=== PATIENT | female | born 1980 | race Caucasian/White ===

== ENCOUNTER 2016-10-13 15:15 | Emergency (ER) ==
[2016-10-13 15:22] VITALS: BP 119/85; TEMP 97.6; BMI 32.1
[2016-10-13] MEDS ORDERED: SODIUM CHLORIDE 1,000 ML IV STA (15:38)
[2016-10-13] MEDS ORDERED: PHENERGAN 25 MG/ML VIAL 12.5 MG in SODIUM CHLORIDE 50 ML IV STA (15:39)
[2016-10-13] MEDS ORDERED: PHENERGAN 25 MG/ML VIAL ONE (15:46)
[2016-10-13 15:49] LABS: BASOPHILS % (AUTO) 0.2 % (0.0-3.0); EOSINOPHILS # (AUTO) 0.4 K/ul (0.0-0.7); EOSINOPHILS % (AUTO) 3.3 % (0.0-7.0); HEMATOCRIT 45.8 % (37.0-47.0); HEMOGLOBIN 15.4 g/dl (12.0-16.0); IMMATURE GRANULOCYTE % (AUTO) 0.5 % (0.0-5.0); LYMPHOCYTES # (AUTO) 3.5 K/uL (0.60-3.4); LYMPHOCYTES % (AUTO) 28.4 (10.0-50.0); MEAN CORPUSCULAR HEMOGLOBIN 30.7 pg (27.0-31.0); MEAN CORPUSCULAR HGB CONC 33.6 (31.8-35.4); MEAN CORPUSCULAR VOLUME 91.4 fl (81.0-99.0); MONOCYTES # (AUTO) 0.7 K/uL (0.4-2.0); NEUTROPHILS # (AUTO) 7.7 K/ul (2.0-6.9); NEUTROPHILS % (AUTO) 61.6; PLATELET COUNT 276 10^3/uL (140-440); RED BLOOD COUNT 5.01 10^6/ul (4.20-5.40); WHITE BLOOD COUNT 12.43 K/ul (4.6-10.2)
--- NOTE | 2016-10-13 16:03 | ED.PDOC ---
General ED Provider: Dr. SURENDRA ALCOCER Chief Complaint: Abdominal Pain Stated Complaint: Diarrhea; cramping - abdominal pain Time Seen by Physician: 15:25 Mode of Arrival: Walk-In Information Source: Patient Exam Limitations: No limitations [facility] Nursing and Triage Documentation Reviewed and Agree: Yes Review of Systems - Review Of Systems Constitutional: Reports: Malaise GI: Reports: Abdominal pain (generalized), Diarrhea, Nausea. Denies: Vomiting All Other Systems: Reviewed and Negative Past Medical History - Past Medical History Previously Healthy: Yes Endocrine: Reports: None Cardiovascular: Reports: None Respiratory: Reports: None Hematological: Reports: None Gastrointestinal: Reports: GERD Genitourinary: Reports: None Neuro/Psych: Reports: Migraine, Anxiety Musculoskeletal: Reports: Joint Pain Cancer: Reports: None Last Menstrual Period: N/A Other Pertinent Past Medical History: PAIN MANAGEMENT; - Surgical History General Surgical History: Reports: Hysterectomy (partial hyst;ablation), Tubal ligation, Cholecystectomy, Other (ESOPHAGUS) - Family History Family History: Reports: Unknown - Social History Smoking Status: Current every day smoker, Light tobacco smoker Hx Substance Use: No Alcohol Screening: Occasionally Physical Exam - Physical Exam Appearance: Ill-appearing Ill-appearing: Mild Eyes: EDGARDO, EOMI, Conjunctiva clear ENT: Oropharynx normal Neck: Supple Respiratory: Airway patent, Breath sounds clear, Breath sounds equal, Respirations nonlabored Cardiovascular: RRR, Pulses normal GI/: Soft, Nontender, No masses, Bowel sounds hypoactive Musculoskeletal: Normal strength, ROM intact Skin: Warm, Dry, Normal color Neurological: Sensation intact, Motor intact, Alert, Oriented Psychiatric: Affect appropriate, Mood appropriate Interpretation - Radiology Interpretation Radiology Interpretation By: Radiologist Exam Interpreted: CT Scan (Abd Pelvis; no acute process) Critical Care Note - Critical Care Note Total Time (mins): 35 Course - Course Hematology/Chemistry: 10/13/16 15:35 10/13/16 15:35 Orders, Labs, Meds: Lab Review 10/13/16 10/13/16 15:35 16:13 WBC 12.43 H RBC 5.01 Hgb 15.4 Hct 45.8 MCV 91.4 MCH 30.7 MCHC 33.6 RDW Coeff of Prerna 13.3 Plt Count 276 Immature Gran % (Auto) 0.5 Neut % (Auto) 61.6 Lymph % (Auto) 28.4 [place] % (Auto) 6.0 Eos % (Auto) 3.3 Baso % (Auto) 0.2 Immature Gran # (Auto) 0.1 Neut # 7.7 H Lymph # 3.5 H Wake # 0.7 Eos # 0.4 Baso # 0.0 Sodium 139 Potassium 3.5 Chloride 107 Carbon Dioxide 22 Anion Gap 13.5 BUN 8 Creatinine 0.88 Estimated GFR (MDRD) 72.00 BUN/Creatinine Ratio 9.09 Glucose 87 Calcium 9.1 Total Bilirubin 0.41 AST 16 ALT 24 Alkaline Phosphatase 81 Total Protein 7.4 Albumin 3.9 Globulin 3.5 Albumin/Globulin Ratio 1.11 Lipase 19 Urine Color Yellow Urine Clarity Slightly Urine pH 5.5 Ur Specific [place] >=1.030 Urine Protein Trace Urine Glucose (UA) Negative Urine Ketones Negative Urine Blood Negative Urine Nitrite Negative Urine Bilirubin Negative Urine Urobilinogen 0.2 Ur Leukocyte Esterase Negative Ur Squamous Epith Cells 30-50 Amorphous Sediment 1+ Orders Category Date Time Status CBC W/ AUTO DIFF Stat LAB 10/13/16 15:35 Completed COMPREHENSIVE METABOLIC PANEL Stat LAB 10/13/16 15:35 Completed LIPASE Stat LAB 10/13/16 15:35 Completed URINALYSIS C & S IF INDICATED Stat LAB 10/13/16 16:13 Completed Promethazine HCl [Phenergan 25 mg/ml Vial] MEDS 10/13/16 15:46 Discontinued 25 mg .ROUTE .STK-MED ONE Promethazine HCl [Phenergan 25 mg/ml Vial] 12.5 mg MEDS 10/13/16 15:39 Discontinued 0.9 % Sodium Chloride [Sodium Chloride] 50 ml IV ONCE Sodium Chloride 0.9% [Sodium Chloride] 1,000 ml MEDS 10/13/16 15:[address] ABDOMEN/PELVIS WO CONTRAST Stat RADS 10/13/16 15:45 Completed Medications Discontinued Medications Generic Name Dose Route Start Last Admin Trade Name Freq PRN Reason Stop Dose Admin Sodium Chloride 1,000 mls @ 1,000 mls/hr 10/13/16 15:38 10/13/16 16:14 Sodium Chloride IV 10/13/16 16:37 1,000 mls/hr BOLUS STA Administration Promethazine HCl 12.5 mg/ 50.5 mls @ 75 mls/hr 10/13/16 15:39 10/13/16 16:12 Sodium Chloride IV 10/13/16 16:19 75 mls/hr ONCE STA Administration Vital Signs: Temp Pulse Resp BP Pulse Ox 10/13/16 15:15 97.6 F 98 H 20 119/85 98 Departure - Departure Time of Disposition: 17:03 Disposition: HOME SELF-CARE Discharge Problem: Enteritis Instructions: Enteritis (ED) Condition: Good Pt referred to PMD for follow-up: Yes (Call for appointment) Additional Instructions: Use phenergan as needed for nausea. Keep well hydrated - small amounts of clear liquids frequently next 18 hours. Allergies/Adverse Reactions: Allergies No Known Allergies Allergy (Verified 10/13/16 15:23) Home Medications: Ambulatory Orders Hydrocodone/Acetaminophen [Lortab 7.5-500 Tablet] 1 each PO TID PRN 08/02/13 Topiramate [Topamax] 100 mg PO BID 12/15/15 Cyclobenzaprine HCl [Flexeril] 10 mg PO TID 10/13/16 Disposition Discussed With: Patient
[2016-10-13 16:08] LABS: ALBUMIN 3.9 g/dL (3.4-5.0); ALBUMIN/GLOBULIN RATIO 1.11; ANION GAP 13.5; BILIRUBIN,TOTAL 0.41 mg/dL (0.00-1.20); BUN/CREATININE RATIO 9.09; CALCIUM 9.1 mg/dL (8.2-10.2); CREATININE 0.88 mg/dL (0.60-1.30); POTASSIUM 3.5 mmol/L (3.5-5.10); TOTAL PROTEIN 7.4 g/dL (6.4-8.2)
[2016-10-13 16:20] LABS: BILIRUBIN,URINE Negative (NEGATIVE); KETONES,URINE Negative (NEGATIVE); LEUKOCYTE ESTERASE ,URINE Negative (NEGATIVE); NITRITE,URINE Negative (NEGATIVE); PH,URINE 5.5 (5-9); PROTEIN,URINE Trace (NEGATIVE); URINE, BLOOD Negative (NEGATIVE)
[2016-10-13 16:23] LABS: ADD URINE MICROSCOPIC YES
--- NOTE | 2016-10-13 16:51 | CT ---
EXAM: CT of the abdomen and pelvis without contrast: History: Patient with history of abdominal pain, nausea. COMPARISON: None available at the time of dictation Technique: Non contrast CT of the abdomen and pelvis was performed with axial , sagital and coronal reconstuctions were obtained and reviewed. FINDINGS: The appendix is visualized without definitive evidence of inflammation or dilation identified. No stones are identified in the bilateral kidneys, ureters or bladder. There is no hydronephrosis or hydroureter idenified. Within the limits of this noncontrast study, no lesions are identified in the kidneys, adrenals, floyd er, spleen or pancreas. Cholecystectomy clips are present. No dilated bowel loops are identified. No focal fluid collections or pathologically enlarged lym ph nodes are identified in the abdomen or pelvis. Bone windows demonstrate no destructive osseous lesions are identified in the abdomen or pelvis. Lum bar spine degenerative changes are present. Limited evaluation of the lung bases appear clear. IMPRESSION: 1. No kidney stones or renal collecting system stones are identified. 2. The appendix is visualized without definitive evidence of inflammation or dilation. 3. Cholecystectomy . 4. Technical limitations in the absence of contrast.
== END 2016-10-13 17:15 | disposition home or self-care (01) ==
LOC: ED 15:15
DX: K52.9 Noninfective gastroenteritis and colitis, unspecified (principal); F17.210 Nicotine dependence, cigarettes, uncomplicated
CPT/HCPCS: 36415; 80053; 81001; 83690; 85025; 96361; 96365; 99283

== ENCOUNTER 2017-01-09 20:39 | Emergency (ER) ==
[2017-01-09 20:53] VITALS: BP 114/80; TEMP 98.2; BMI 31.9
--- NOTE | 2017-01-09 21:10 | ED.PDOC ---
General ED Provider: Dr. EMANI SALGADO Chief Complaint: Nausea/Vomiting Stated Complaint: been hurting in the lower part of the abdomen, cramps, nausea , not vomited, Time Seen by Physician: 21:08 Mode of Arrival: Walk-In Information Source: Patient Primary Care Provider: EMANI SALGADO-[facility] Nursing and Triage Documentation Reviewed and Agree: Yes GI Complaint Exam - Abdominal Pain Complaint/Exam Onset: Gradual Symptoms Are: Still present Timing: Constant Initial Severity: Moderate Current Severity: Moderate Location of Pain: Suprapubic Character: Reports: Aching, Throbbing Aggravating: Reports: None Alleviating: Reports: None Associated Signs and Symptoms: Reports: Nausea, Diarrhea. Denies: Diaphoresis, Fever, Cough, Chest pain, Dizziness, Back pain, Constipation, Blood in stool, Dysuria, Urinary frequency, Decreased urine output, Decreased appetite, Vaginal bleeding, Vaginal discharge, Vomiting, Sore throat, Decreased activity Related History: Reports: Similar episode AAA Risk Factors: Reports: None Cardiac Risk Factors: Reports: None Ectopic Risk Factors: Reports: None Ovarian Torsion Risk Factors: Reports: None Surgical Obstruction Risk Factors: Reports: None Related Surgical History: Reports: None Abdominal Findings: Absent: Pulsatile mass, Abdominal distention Vulva Exam: Absent: Contusion Differential Diagnoses: Constipation, UTI, Ovarian Cyst Review of Systems - Review Of Systems Constitutional: Reports: No symptoms Eyes: Reports: No symptoms Ears, Nose, Mouth, Throat: Reports: No symptoms Respiratory: Reports: No symptoms Cardiac: Reports: No symptoms GI: Reports: Abdominal pain, Nausea : Reports: No symptoms Musculoskeletal: Reports: No symptoms Skin: Reports: No symptoms Neurological: Reports: No symptoms Endocrine: Reports: No symptoms Hematologic/Lymphatic: Reports: No symptoms All Other Systems: Reviewed and Negative Past Medical History - Past Medical History Previously Healthy: Yes Endocrine: Reports: None Cardiovascular: Reports: None Respiratory: Reports: None Hematological: Reports: None Gastrointestinal: Reports: GERD Genitourinary: Reports: None Neuro/Psych: Reports: Migraine, Anxiety Musculoskeletal: Reports: Joint Pain Cancer: Reports: None Last Menstrual Period: HYSTERECTOMY Other Pertinent Past Medical History: PAIN MANAGEMENT; - Surgical History General Surgical History: Reports: Hysterectomy (partial hyst;ablation), Tubal ligation, Cholecystectomy, Other (ESOPHAGUS) - Family History Family History: Reports: Unknown - Social History Smoking Status: Current every day smoker, Light tobacco smoker Smoking Cessation Counseling Time: > 3 min - 10 min Hx Substance Use: No Alcohol Screening: Occasionally Physical Exam - Physical Exam Appearance: Well-appearing, Obese Pain Distress: Mild Eyes: EDGARDO, EOMI, Conjunctiva clear ENT: Ears normal, Nose normal, Oropharynx normal Respiratory: Airway patent, Breath sounds clear, Breath sounds equal, Respirations nonlabored Cardiovascular: RRR, Pulses normal, No rub, No murmur GI/: Soft, Tender Musculoskeletal: Normal strength, ROM intact, No edema, No calf tenderness Skin: Warm, Dry, Normal color Neurological: Sensation intact, Motor intact, Reflexes intact, Cranial nerves intact, Alert, Oriented Psychiatric: Affect appropriate, Mood appropriate Interpretation - Radiology Interpretation Radiology Interpretation By: Radiologist Radiology Results: Negative Exam Interpreted: CT Scan Critical Care Note - Critical Care Note Total Time (mins): 0 Course - Course Hematology/Chemistry: 01/09/17 21:10 01/09/17 21:10 Orders, Labs, Meds: Lab Review 01/09/17 01/09/17 21:05 21:10 WBC 10.43 H RBC 5.15 Hgb 15.7 Hct 46.9 MCV 91.1 MCH 30.5 MCHC 33.5 RDW Coeff of Prerna 13.2 Plt Count 292 Immature Gran % (Auto) 0.4 Neut % (Auto) 46.5 Lymph % (Auto) 42.3 Long % (Auto) 7.7 Eos % (Auto) 2.8 Baso % (Auto) 0.3 Immature Gran # (Auto) 0.0 Neut # 4.9 Lymph # 4.4 H Long # 0.8 Eos # 0.3 Baso # 0.0 Sodium 137 Potassium 3.7 Chloride 106 Carbon Dioxide 22 Anion Gap 12.7 BUN 16 Creatinine 0.91 Estimated GFR (MDRD) 70.00 BUN/Creatinine Ratio 17.58 Glucose 79 Calcium 9.4 Total Bilirubin 0.24 AST 27 ALT 39 Alkaline Phosphatase 80 Total Protein 7.7 Albumin 3.8 Globulin 3.9 Albumin/Globulin Ratio 0.97 Urine Color Yellow Urine Clarity Clear Urine pH 5.0 Ur Specific [place] >=1.030 Urine Protein Negative Urine Glucose (UA) Negative Urine Ketones Trace Urine Blood Negative Urine Nitrite Negative Urine Bilirubin 1+ Urine Urobilinogen 0.2 Ur Leukocyte Esterase Negative Orders Category Date Time Status CBC W/ AUTO DIFF Stat LAB 01/09/17 21:10 Completed COMPREHENSIVE METABOLIC PANEL Stat LAB 01/09/17 21:10 Completed URINALYSIS C & S IF INDICATED Stat LAB 01/09/17 21:[address] ABDOMEN/PELVIS WO CONTRAST Stat RADS 01/09/17 21:01 Completed Vital Signs: Temp Pulse Resp BP Pulse Ox 01/09/17 20:40 98.2 F 104 H 20 114/80 98 Departure - Departure Time of Disposition: 21:46 Disposition: HOME SELF-CARE Discharge Problem: Irritable bowel syndrome Qualifiers: Irritable bowel syndrome type: with diarrhea Qualifier Code: (K58.0) Irritable bowel syndrome with diarrhea Instructions: Irritable Bowel Syndrome (ED) Condition: Stable Pt referred to PMD for follow-up: Yes Additional Instructions: Increase hydration and high fibre diet. soft diet for couple days Prescriptions: Ondansetron HCl [Zofran] 4 mg PO TID #14 tablet Allergies/Adverse Reactions: Allergies No Known Allergies Allergy (Verified 01/09/17 20:46) Home Medications: Ambulatory Orders Hydrocodone/Acetaminophen [Lortab 7.5-500 Tablet] 1 each PO TID PRN 08/02/13 Topiramate [Topamax] 100 mg PO BID 12/15/15 Cyclobenzaprine HCl [Flexeril] 10 mg PO TID 10/13/16 Ondansetron HCl [Zofran] 4 mg PO TID #14 tablet 01/09/17 Disposition Discussed With: Patient
[2017-01-09 21:18] LABS: BASOPHILS % (AUTO) 0.3 % (0.0-3.0); EOSINOPHILS # (AUTO) 0.3 K/ul (0.0-0.7); EOSINOPHILS % (AUTO) 2.8 % (0.0-7.0); HEMATOCRIT 46.9 % (37.0-47.0); HEMOGLOBIN 15.7 g/dl (12.0-16.0); IMMATURE GRANULOCYTE % (AUTO) 0.4 % (0.0-5.0); LYMPHOCYTES # (AUTO) 4.4 K/uL (0.60-3.4); LYMPHOCYTES % (AUTO) 42.3 (10.0-50.0); MEAN CORPUSCULAR HEMOGLOBIN 30.5 pg (27.0-31.0); MEAN CORPUSCULAR HGB CONC 33.5 (31.8-35.4); MEAN CORPUSCULAR VOLUME 91.1 fl (81.0-99.0); MONOCYTES # (AUTO) 0.8 K/uL (0.4-2.0); MONOCYTES % (AUTO) 7.7 (0-10); NEUTROPHILS # (AUTO) 4.9 K/ul (2.0-6.9); NEUTROPHILS % (AUTO) 46.5; PLATELET COUNT 292 10^3/uL (140-440); RED BLOOD COUNT 5.15 10^6/ul (4.20-5.40); WHITE BLOOD COUNT 10.43 K/ul (4.6-10.2)
[2017-01-09 21:20] LABS: BILIRUBIN,URINE 1+ (NEGATIVE); KETONES,URINE Trace (NEGATIVE); LEUKOCYTE ESTERASE ,URINE Negative (NEGATIVE); NITRITE,URINE Negative (NEGATIVE); PROTEIN,URINE Negative (NEGATIVE); URINE, BLOOD Negative (NEGATIVE)
[2017-01-09 21:21] LABS: ADD URINE MICROSCOPIC NO
[2017-01-09 21:33] LABS: ALBUMIN 3.8 g/dL (3.4-5.0); ALBUMIN/GLOBULIN RATIO 0.97; ANION GAP 12.7; BILIRUBIN,TOTAL 0.24 mg/dL (0.00-1.20); BUN/CREATININE RATIO 17.58; CALCIUM 9.4 mg/dL (8.2-10.2); CREATININE 0.91 mg/dL (0.60-1.30); POTASSIUM 3.7 mmol/L (3.5-5.10); TOTAL PROTEIN 7.7 g/dL (6.4-8.2)
--- NOTE | 2017-01-09 21:43 | CT ---
Exam: Noncontrast CT exam of the abdomen pelvis. Comparison: 10/13/2016. Reason for exam: Lower abdominal pain. FINDINGS: No focal consolidation or pleural effusion is seen in the partially imaged lung bases. Th e heart does not appear enlarged. Image interpretation is limited by the lack of intravenous contrast administration. The gallbladder is been removed. The stomach is distended with food. Within the limitations of a non contrast exam, the liver, spleen, adrenal glands, and pancreas are grossly unremarkable. No hydronephrosis, hydroureter, or nephrolithiasis. There is no focal small bowel dilatation or transition point. No inflammatory changes are seen with in the mesenteric or pelvic fat. There is no intra-abdominal free air or pelvic free fluid. The appendix is unremarkable. No osteoblastic or osteolytic lesions. There is a new only fat containing periumbilical hernia. Multiple phleboliths are seen within the pe lvis. Impression: No acute inflammatory findings are seen within the abdomen or pelvis. Image interpretation faxed at the 2138 hours on 01/09/2017.
== END 2017-01-09 21:59 | disposition home or self-care (01) ==
LOC: ED 20:39
DX: K58.0 Irritable bowel syndrome with diarrhea (principal); F17.210 Nicotine dependence, cigarettes, uncomplicated
CPT/HCPCS: 36415; 80053; 81001; 85025; 99283

== ENCOUNTER 2017-01-16 13:43 | Outpatient (CLI) ==
--- NOTE | 2017-01-16 14:22 | DI ---
EXAM: Radiographs, lumbar spine HISTORY: Lumbar disc disease. COMPARISON: Abdominal CT 01/09/2017. MRI 08/17/2010. TECHNIQUE: Five views. FINDINGS: Curvature and alignment are normal save for minimal left convex midlumbar curvature. Brandon tebral body heights are maintained. Disc heights are normal. Mild endplate osteophyte formation an d facet arthropathy seen, greater in the lower lumbar spine. No fracture or subluxation identified. Sacral arcuate lines are intact. Cholecystectomy clips noted. Phleboliths are seen in the pelvis . IMPRESSION: Multilevel degenerative changes, greater in the lower lumbar spine. Consider follow-up MRI if furth er evaluation is needed.
== END 2017-01-16 13:44 | disposition home or self-care (01) ==
LOC: RAD 13:43
PROVIDERS: ATTEND Pain Medicine Interventional Pain Medicine
DX: M54.16 Radiculopathy, lumbar region (principal); M54.17 Radiculopathy, lumbosacral region; M47.816 Spondylosis without myelopathy or radiculopathy, lumbar region; M47.817 Spondylosis without myelopathy or radiculopathy, lumbosacral region; M51.36 Other intervertebral disc degeneration, lumbar region; M51.37 Other intervertebral disc degeneration, lumbosacral region

== ENCOUNTER 2017-02-01 11:41 | Outpatient (CLI) ==
[2017-02-01 13:10] LABS: BILIRUBIN,URINE Negative (NEGATIVE); KETONES,URINE Negative (NEGATIVE); LEUKOCYTE ESTERASE ,URINE Negative (NEGATIVE); NITRITE,URINE Negative (NEGATIVE); PH,URINE 7.5 (5-9); PROTEIN,URINE Negative (NEGATIVE); URINE, BLOOD Negative (NEGATIVE)
[2017-02-01 13:25] LABS: ADD URINE MICROSCOPIC NO
== END 2017-02-01 11:42 | disposition home or self-care (01) ==
LOC: LAB 11:41
PROVIDERS: ATTEND Nurse Practitioner Family
DX: R35.0 Frequency of micturition (principal); R30.9 Painful micturition, unspecified; Z00.00 Encounter for general adult medical examination without abnormal findings; Z72.0 Tobacco use
CPT/HCPCS: 81001

== ENCOUNTER 2017-02-08 11:51 | Outpatient (CLI) ==
[2017-02-14 09:37] LABS: IGG P18 AB Absent (.); IGG P23 AB Absent (.); IGG P28 AB Absent (.); IGG P30 AB Absent (.); IGG P39 AB Absent (.); IGG P41 AB Present (.); IGG P45 AB Absent (.); IGG P58 AB Absent (.); IGG P66 AB Absent (.); IGG P93 AB Absent (.); IGM P39 AB Absent (.); IGM P41 AB Absent (.); RHEUMATOID ARTHRITIS FACTOR < 10.0 IU/mL (0.0-13.9)
[2017-02-14 14:02] LABS: ANTI-NUCLEAR ANTIBODY SCREEN Positive (Negative); LYME IGG WB INTERP Negative (.); LYME IGM WB INTERP Negative (.)
== END 2017-02-08 11:52 ==
LOC: LAB 11:51
PROVIDERS: ATTEND Nurse Practitioner Family
DX: M25.50 Pain in unspecified joint (principal)
CPT/HCPCS: 36415; 82306; 86038; 86430; 86617; 86664

== ENCOUNTER 2017-02-12 14:14 | Outpatient (CLI) | END 2017-02-12 14:15 | disposition home or self-care (01) | LOC: CAR 14:14 | PROVIDERS: ATTEND Nurse Practitioner Family | DX: R40.0 Somnolence (principal) ==

== ENCOUNTER 2017-02-13 08:27 | Outpatient (CLI) ==
--- NOTE | 2017-02-13 22:56 | MRI ---
EXAM: Lumbar spine MRI without contrast. HISTORY: Lumbar disc disease. COMPARISON: Lumbar spine radiographs 01/16/2017. TECHNIQUE: Multiplanar, multisequence MR images were acquired of the lumbar spine without contrast. FINDINGS: Five lumbar-type vertebra are present. There is mild accentuation of the usual lumbar lo rdosis and there is 1.5 mm degenerative anterolisthesis of L5 on S1. The lumbar vertebra are normal in height and intrinsic bone marrow signal. Benign intraosseous hemangiomas are present at T11, T1 2, L1 and L3. There is disc desiccation and mild disc space narrowing at L3-4 and L5-S1. Developin g disc dessication is present at L4-5. Conus medullaris ends at T12-L1 and has normal signal intens ity. The partially visualized liver, spleen, adrenal glands and kidneys are unremarkable. There are no p aravertebral masses. T12-L1, L1-2, L2-3: The intervertebral discs are normal. There is no central canal stenosis or for aminal stenosis. L3-4: There is a minor disc bulge and a small central disc protrusion that minimally effaces the ve ntral thecal sac. Mild left facet hypertrophy is present. There is no central canal stenosis or fo raminal stenosis. L4-5: There is a minor posterior disc bulge and a probable small central disc protrusion and annula r fissure. Volume averaging artifact is considered less likely. Moderate left and mild to moderate right hypertrophic facet arthropathy is present without foraminal stenosis. L5-S1: There is a tiny right paracentral disc protrusion and annular fissure that minimally effaces the ventral thecal sac and mild to moderate bilateral hypertrophic facet arthropathy without forami nal stenosis. IMPRESSION: 1. Small central disc protrusion L3-4, tiny right paracentral disc protrusion and annular fissure L 5-S1 and probable small central disc protrusion L4-5. 2. Mild to moderate and moderate hypertrophic facet arthropathy L4-5 and L5-S1. 3. No central canal stenosis, pars interarticularis defects or significant foraminal stenosis.
== END 2017-02-13 08:28 | disposition home or self-care (01) ==
LOC: RAD 08:27
PROVIDERS: ATTEND Nurse Practitioner Family
DX: R93.7 Abnormal findings on diagnostic imaging of other parts of musculoskeletal system (principal); M12.88 Other specific arthropathies, not elsewhere classified, other specified site; M54.5 Low back pain

== ENCOUNTER 2017-02-15 11:50 | Outpatient (CLI) | END 2017-02-15 11:51 | disposition home or self-care (01) | LOC: LAB 11:50 | PROVIDERS: ATTEND Nurse Practitioner Family | DX: R53.83 Other fatigue (principal); E66.9 Obesity, unspecified | CPT/HCPCS: 36415; 84439; 84443 ==

== ENCOUNTER 2017-06-24 12:50 | Outpatient (CLI) ==
[2017-06-24 13:09] LABS: BASOPHILS # (AUTO) 0.1 K/uL (0-0.2); BASOPHILS % (AUTO) 0.4 % (0.0-3.0); EOSINOPHILS # (AUTO) 0.2 K/ul (0.0-0.7); EOSINOPHILS % (AUTO) 1.2 % (0.0-7.0); HEMATOCRIT 44.9 % (37.0-47.0); HEMOGLOBIN 15.5 g/dl (12.0-16.0); IMMATURE GRANULOCYTE % (AUTO) 0.6 % (0.0-5.0); LYMPHOCYTES # (AUTO) 4.3 K/uL (0.60-3.4); LYMPHOCYTES % (AUTO) 31.5 (10.0-50.0); MEAN CORPUSCULAR HEMOGLOBIN 30.5 pg (27.0-31.0); MEAN CORPUSCULAR HGB CONC 34.5 (31.8-35.4); MEAN CORPUSCULAR VOLUME 88.2 fl (81.0-99.0); MONOCYTES # (AUTO) 0.6 K/uL (0.4-2.0); MONOCYTES % (AUTO) 4.4 (0-10); NEUTROPHILS # (AUTO) 8.4 K/ul (2.0-6.9); NEUTROPHILS % (AUTO) 61.9; PLATELET COUNT 316 10^3/uL (140-440); RED BLOOD COUNT 5.09 10^6/ul (4.20-5.40); WHITE BLOOD COUNT 13.54 K/ul (4.6-10.2)
[2017-06-24 13:42] LABS: ALBUMIN 3.5 g/dL (3.4-5.0); ALBUMIN/GLOBULIN RATIO 0.95; ANION GAP 12.7; BILIRUBIN,TOTAL 0.56 mg/dL (0.00-1.20); BUN/CREATININE RATIO 18.3; CALCIUM 9.2 mg/dL (8.2-10.2); CHOL/HDL RATIO 4.1 (4.5-5.5); CREATININE 0.71 mg/dL (0.60-1.30); POTASSIUM 3.7 mmol/L (3.5-5.10); TOTAL PROTEIN 7.2 g/dL (6.4-8.2)
== END 2017-06-24 12:51 | disposition home or self-care (01) ==
LOC: LAB 12:50
PROVIDERS: ATTEND Nurse Practitioner Family
DX: Z00.00 Encounter for general adult medical examination without abnormal findings (principal); Z72.0 Tobacco use
CPT/HCPCS: 36415; 80053; 80061; 84443; 85025

== ENCOUNTER 2017-08-11 13:29 | Emergency (ER) ==
[2017-08-11 13:40] VITALS: BP 127/85; TEMP 97.7; BMI 33.8
[2017-08-11] MEDS ORDERED: DUONEB NEB STA (14:12)
[2017-08-11] MEDS ORDERED: DECADRON 4 MG/ML SDV IM STA (14:12)
--- NOTE | 2017-08-11 14:15 | ED.PDOC ---
General ED Provider: Dr. EMANI SALGADO Chief Complaint: Respiratory Complaint Stated Complaint: Been coughing, congestion, getting yellow sputum Time Seen by Physician: 14:13 Mode of Arrival: Walk-In Information Source: Patient Primary Care Provider: EMANI SALGADO-[facility] Nursing and Triage Documentation Reviewed and Agree: Yes Respiratory Complaint Exam - Respiratory Complaint/Exam Symptoms Are: Still present Timing: Constant Initial Severity: Mild Current Severity: Mild Character: Reports: Productive cough Aggravating: Reports: Allergens, URI Alleviating: Reports: None Associated Signs and Symptoms: Reports: Wheezing, URI, Nasal congestion, Hoarseness. Denies: Rapid breathing, Dyspnea, Fever, Chills, Chest pain, Pleuritic chest pain, Hemoptysis, Dizziness, Calf pain, Calf swelling, Edema, Sinus discomfort, Vomiting, Sore throat, Weight loss, Decreased oral intake, Increased thirst, Increased appetite, Increased urination Related History: Reports: Similar episode History of Healthcare-Acquired Pneumonia: No Related Surgical History: Reports: None Pulmonary Embolism Risk Factors: None Cardiac Risk Factors: Reports: None Pseudomonas Risk Factors: Reports: None Tuberculosis Risk Factors: Reports: None Status Asthmaticus Risk Factors: Reports: None Home Oxygen Use: No Recent Stress Test: No Recent Echo/LV Function: No Current Antibiotic Use: No Current Asthma Medication Use: No Respiratory Distress: None Inadequate Respiratory Effort: No Dysphagia Present: No Stridor Present: No JVD Present: No Accessory Muscle Use: No Retractions: Not Present Diminished Breath Sounds: No Prolonged Respiration: Inspiratory phase Sinus Tenderness: None Grunting Respirations: No Kussmaul Respirations: No Differential Diagnoses: Pneumonia, Bronchitis Review of Systems - Review Of Systems Constitutional: Reports: No symptoms Eyes: Reports: No symptoms Ears, Nose, Mouth, Throat: Reports: Nose discharge, Throat pain Respiratory: Reports: Cough Cardiac: Reports: No symptoms GI: Reports: No symptoms : Reports: No symptoms Musculoskeletal: Reports: No symptoms Skin: Reports: No symptoms Neurological: Reports: No symptoms Endocrine: Reports: No symptoms Hematologic/Lymphatic: Reports: No symptoms All Other Systems: Reviewed and Negative Past Medical History - Past Medical History Previously Healthy: Yes Endocrine: Reports: None Cardiovascular: Reports: None Respiratory: Reports: None Hematological: Reports: None Gastrointestinal: Reports: GERD Genitourinary: Reports: None Neuro/Psych: Reports: Migraine, Anxiety Musculoskeletal: Reports: Joint Pain Cancer: Reports: None Last Menstrual Period: unknown, hysterectomy Other Pertinent Past Medical History: PAIN MANAGEMENT; - Surgical History General Surgical History: Reports: Hysterectomy (partial hyst;ablation), Tubal ligation, Cholecystectomy, Other (ESOPHAGUS) - Family History Family History: Reports: Unknown - Social History Smoking Status: Current every day smoker, Light tobacco smoker Smoking Cessation Counseling Time: > 3 min - 10 min Hx Substance Use: No Alcohol Screening: Occasionally Physical Exam - Physical Exam Appearance: Ill-appearing, Obese Eyes: EDGARDO, EOMI, Conjunctiva clear ENT: Ears normal, Nose normal, Oropharynx normal Respiratory: Crackles Cardiovascular: RRR, Pulses normal, No rub, No murmur GI/: Soft, Nontender, No masses, Bowel sounds normal, No Organomegaly Musculoskeletal: Normal strength, ROM intact, No edema, No calf tenderness Skin: Warm, Dry, Normal color Neurological: Sensation intact, Motor intact, Reflexes intact, Cranial nerves intact, Alert, Oriented Psychiatric: Affect appropriate, Mood appropriate Interpretation - Radiology Interpretation Radiology Interpretation By: ED Physician Radiology Results: Negative Exam Interpreted: CXR Critical Care Note - Critical Care Note Total Time (mins): 0 Course - Course Orders, Labs, Meds: Orders Category Date Time Status NEBULIZER TREATMENT Stat CARDIO 08/11/17 14:12 Ordered Dexamethasone 4 mg/ml Inj [Decadron 4 mg/ml Sdv] MEDS 08/11/17 14:12 Discontinued 4 mg IM ONCE STA Ipratropium/Albuterol Neb [Duoneb] MEDS 08/11/17 14:12 Discontinued 1 vial NEB ONCE STA CHEST, 2 VIEWS PA & LAT Stat RADS 08/11/17 14:12 Taken Medications Discontinued Medications Generic Name Dose Route Start Last Admin Trade Name Freq PRN Reason Stop Dose Admin Albuterol/Ipratropium 1 vial 08/11/17 14:12 Duoneb NEB 08/11/17 14:13 ONCE STA Dexamethasone Sodium Phosphate 4 mg 08/11/17 14:12 Decadron 4 Mg/Ml Sdv IM 08/11/17 14:13 ONCE STA Vital Signs: Temp Pulse Resp BP Pulse Ox 08/11/17 13:30 97.7 F 99 H 20 127/85 98 Departure - Departure Time of Disposition: 14:39 Disposition: HOME SELF-CARE Discharge Problem: URTI (acute upper respiratory infection) Instructions: Upper Respiratory Infection (ED) Condition: Good Pt referred to PMD for follow-up: Yes Additional Instructions: Take medication with food Increase hydration. stop smoking. Prescriptions: Cephalexin [Keflex] 500 mg PO Q12HR #20 capsule Ipratropium [place] [Atrovent Hfa] 2 puff IH QID #1 vial Prednisone 10 mg PO BIDWM #14 tablet Allergies/Adverse Reactions: Allergies No Known Allergies Allergy (Verified 08/11/17 13:40) Home Medications: Ambulatory Orders Hydrocodone/Acetaminophen [Lortab 7.5-500 Tablet] 1 each PO TID PRN 08/02/13 Cyclobenzaprine HCl [Flexeril] 10 mg PO TID 10/13/16 Cephalexin [Keflex] 500 mg PO Q12HR #20 capsule 08/11/17 Ipratropium [place] [Atrovent Hfa] 2 puff IH QID #1 vial 08/11/17 Prednisone 10 mg PO BIDWM #14 tablet 08/11/17 Disposition Discussed With: Patient
--- NOTE | 2017-08-11 16:23 | DI ---
Exam: Two x-rays of the chest. Comparison: 05/23/2015. Reason for exam: Coughing. FINDINGS: No pneumothorax, pleural effusion, or focal consolidation. The cardiac silhouette is not enlarged. The imaged osseous structures appear grossly unremarkable without acute fracture. Impression: No acute cardiopulmonary process.
== END 2017-08-11 15:13 | disposition home or self-care (01) ==
LOC: ED 13:29
DX: J06.9 Acute upper respiratory infection, unspecified (principal); F17.210 Nicotine dependence, cigarettes, uncomplicated
CPT/HCPCS: 94640; 96372; 99283

== ENCOUNTER 2017-12-23 12:33 | Outpatient (CLI) | END 2017-12-23 12:34 | disposition home or self-care (01) | LOC: FCC-LAB 12:33 | PROVIDERS: ATTEND Nurse Practitioner Family | DX: F41.9 Anxiety disorder, unspecified (principal); R53.83 Other fatigue | CPT/HCPCS: 36415; 80053; 82306; 84439; 84443; 85025 ==

== ENCOUNTER 2017-12-24 10:29 | Outpatient (CLI) ==
--- NOTE | 2017-12-24 12:31 | US ---
Exam: Morales-scale and color Doppler ultrasonographic evaluation of the thyroid. Comparison: None available. Reason for exam: Nontoxic goiter. FINDINGS: The right thyroid lobe measures approximately 4.59 x 1.33 x 1.66 cm with a normal appearin g echotexture and normal vascular flow. The isthmus measures 0.46 cm. The left thyroid lobe measures approximately 4.24 x 1.46 x 1.84 cm with normal appearing echotexture and normal vascularity. Impression: Unremarkable ultrasonographic evaluation of the thyroid
== END 2017-12-24 10:30 | disposition home or self-care (01) ==
LOC: RAD 10:29
PROVIDERS: ATTEND Nurse Practitioner Family
DX: E04.9 Nontoxic goiter, unspecified (principal)

== ENCOUNTER 2017-12-31 18:35 | Emergency (ER) ==
[2017-12-31 18:45] VITALS: BP 121/86; TEMP 97.9; BMI 33.7
[2017-12-31] MEDS ORDERED: GI COCKTAIL PO STA (19:44)
[2017-12-31] MEDS ORDERED: DEMEROL 25 MG/ML VIAL IM STA (20:07)
[2017-12-31] MEDS ORDERED: ZOFRAN 4 MG/2 ML IM STA (20:07)
--- NOTE | 2017-12-31 20:10 | ED.PDOC ---
General ED Provider: Dr. EMANI SALGADO Chief Complaint: Headache Stated Complaint: Started with headache in the morning, Typical migrain, took medications went to work, started having epigastric pain nausea and vomited 2 x times. last one at 5 pm. Time Seen by Physician: 20:08 Mode of Arrival: Walk-In Information Source: Patient Primary Care Provider: EMANI SALGADO-[facility] Nursing and Triage Documentation Reviewed and Agree: Yes Reviewed sepsis parameters & appropriate labs ordered?: No System Inflammatory Response Syndrome: Not Applicable Sepsis Protocol: For patient's 13 years and over: Temp is 96.8 and below OR 101 and greater Pulse >90 BPM Resp >20/minute Acutely Altered Mental Status Are patient's symptoms suggestive of a new infection, such as: -Pneumonia -Skin, Soft Tissue -Endocarditis -UTI -Bone, Joint Infection -Implantable Device -Acute Abdominal Infection -Wound Infection -Meningitis -Blood Stream Catheter Infection -Unknown Neurological Complaint Exam - Headache Complaint/Exam Onset: Gradual Symptoms Are: Still present Timing: Constant Episodes Lasting: Hours Worst Headache Ever: No Initial Severity: Moderate Current Severity: Moderate Location: Right, Left, Frontal Character: Reports: Dull, Throbbing, Typical headache, Migraine Aggravating: Reports: None Alleviating: Reports: None Related History: Reports: Similar episode Related Surgical History: Reports: None SAH Risk Factors: Reports: None Meningitis Risk Factors: Reports: None SDH Risk Factors: Reports: None Temporal Arteritis Risk Factors: Reports: None Meningeal Signs Positive: No Pain on Passive Flexion-Positive Kernig's: No ROM Limited In: No Limitiations Focal Weakness: Present: None Focal Sensory Loss: Present: None Gait: Normal Nystagmus Present: No Gag Reflex Present: Yes [id number]: Normal Findings Romberg Test Positive: No Babinski Sign: Negative Right, Negative Left Differential Diagnoses: Migraine, Other (uti) Review of Systems - Review Of Systems Constitutional: Reports: No symptoms Eyes: Reports: No symptoms Ears, Nose, Mouth, Throat: Reports: No symptoms Respiratory: Reports: No symptoms Cardiac: Reports: No symptoms GI: Reports: Abdominal pain, Nausea, Vomiting : Reports: No symptoms Musculoskeletal: Reports: No symptoms Skin: Reports: No symptoms Neurological: Reports: Headache Endocrine: Reports: No symptoms Hematologic/Lymphatic: Reports: No symptoms All Other Systems: Reviewed and Negative Past Medical History - Past Medical History Previously Healthy: Yes Endocrine: Reports: None Cardiovascular: Reports: None Respiratory: Reports: None Hematological: Reports: None Gastrointestinal: Reports: GERD Genitourinary: Reports: None Neuro/Psych: Reports: Migraine, Anxiety Musculoskeletal: Reports: Joint Pain Cancer: Reports: None Last Menstrual Period: hysterectomy Other Pertinent Past Medical History: PAIN MANAGEMENT; - Surgical History General Surgical History: Reports: Hysterectomy (partial hyst;ablation), Tubal ligation, Cholecystectomy, Other (ESOPHAGUS) - Family History Family History: Reports: Unknown - Social History Smoking Status: Current every day smoker, Light tobacco smoker Smoking Cessation Counseling Time: > 3 min - 10 min Hx Substance Use: No Alcohol Screening: Occasionally Physical Exam - Physical Exam Appearance: Ill-appearing Eyes: EDGARDO, EOMI, Conjunctiva clear ENT: Ears normal, Nose normal, Oropharynx normal Respiratory: Airway patent, Breath sounds clear, Breath sounds equal, Respirations nonlabored Cardiovascular: RRR, Pulses normal, No rub, No murmur GI/: Soft, No masses, Bowel sounds normal, No Organomegaly, Tender Musculoskeletal: Normal strength, ROM intact, No edema, No calf tenderness Skin: Warm, Dry, Normal color Neurological: Sensation intact, Motor intact, Reflexes intact, Cranial nerves intact, Alert, Oriented Psychiatric: Affect appropriate, Mood appropriate Re-Evaluation - Re-Evaluation Time of Re-Evaluation: 20:39 Status: Improved Critical Care Note - Critical Care Note Total Time (mins): 30 Course - Course Hematology/Chemistry: 12/31/17 19:53 12/31/17 19:53 Orders, Labs, Meds: Lab Review 12/31/17 12/31/17 12/31/17 19:53 19:53 20:08 WBC 10.64 H RBC 4.39 Hgb 13.5 Hct 40.1 MCV 91.3 MCH 30.8 MCHC 33.7 RDW Coeff of Prerna 13.4 Plt Count 251 Immature Gran % (Auto) 0.4 Neut % (Auto) 55.5 Lymph % (Auto) 33.7 [place] % (Auto) 7.6 Eos % (Auto) 2.5 Baso % (Auto) 0.3 Immature Gran # (Auto) 0.0 Neut # (Auto) 5.9 Lymph # (Auto) 3.6 H [place] # (Auto) 0.8 Eos # (Auto) 0.3 Baso # (Auto) 0.0 Sodium 137 Potassium 3.5 Chloride 108 H Carbon Dioxide 21 Anion Gap 11.5 BUN 7 Creatinine 0.72 Estimated GFR (MDRD) 91.00 BUN/Creatinine Ratio 9.72 Glucose 102 Calcium 8.7 Total Bilirubin 0.2 AST 15 ALT 18 Alkaline Phosphatase 76 Total Protein 6.5 Albumin 3.3 L Globulin 3.2 Albumin/Globulin Ratio 1.03 Amylase 41 Lipase 20 Urine Color Yellow Urine Clarity Clear Urine pH 6.5 Ur Specific [place] 1.025 Urine Protein Negative Urine Glucose (UA) Negative Urine Ketones Negative Urine Blood Negative Urine Nitrite Negative Urine Bilirubin Negative Urine Urobilinogen 0.2 Ur Leukocyte Esterase Negative Orders Category Date Time Status AMYLASE Stat LAB 12/31/17 19:53 Completed CBC W/ AUTO DIFF Stat LAB 12/31/17 19:53 Completed COMPREHENSIVE METABOLIC PANEL Stat LAB 12/31/17 19:53 Completed LIPASE Stat LAB 12/31/17 19:53 Completed URINALYSIS C & S IF INDICATED Stat LAB 12/31/17 20:08 Completed Mag-Al Plus//Lidocaine [Gi Cocktail] MEDS 12/31/17 19:44 Discontinued 30 ml PO ONCE STA Meperidine HCl/Pf [Demerol 25 mg/ml Vial] MEDS 12/31/17 20:07 Discontinued 25 mg IM ONCE STA Ondansetron HCl/Pf [Zofran 4 mg/2 ml] MEDS 12/31/17 20:07 Discontinued 4 mg IM ONCE STA Medications Discontinued Medications Generic Name Dose Route Start Last Admin Trade Name Freq PRN Reason Stop Dose Admin Al Hydroxide/Mg Hydroxide 30 ml 12/31/17 19:44 12/31/17 20:06 Gi Cocktail PO 12/31/17 19:45 30 ml ONCE STA Administration Meperidine HCl 25 mg 12/31/17 20:07 12/31/17 20:14 Demerol 25 Mg/Ml Vial IM 12/31/17 20:08 25 mg ONCE STA Administration Ondansetron HCl 4 mg 12/31/17 20:07 12/31/17 20:14 Zofran 4 Mg/2 Ml IM 12/31/17 20:08 4 mg ONCE STA Administration Vital Signs: Temp Pulse Resp BP Pulse Ox 12/31/17 18:36 97.9 F 91 H 20 121/86 98 Departure - Departure Time of Disposition: 20:39 Disposition: HOME SELF-CARE Discharge Problem: Headache Instructions: Migraine Headache (ED) Condition: Stable Pt referred to PMD for follow-up: Yes IPMP verified?: No Additional Instructions: Increase Hydration Soft diet for 2-3 days continue home medications f/u [facility] in 2-3 days Prescriptions: Ondansetron [Zofran Odt] 4 mg PO Q8H #20 tab.rapdis Allergies/Adverse Reactions: Allergies No Known Allergies Allergy (Verified 12/31/17 18:45) Home Medications: Ambulatory Orders Hydrocodone/Acetaminophen [Lortab 7.5-500 Tablet] 1 each PO TID PRN 08/02/13 Cyclobenzaprine HCl [Flexeril] 10 mg PO TID 10/13/16 Topiramate [Trokendi Xr] 100 mg PO DAILY 12/23/17 Cetirizine HCl [Zyrtec] 10 mg PO DAILY 12/31/17 Multivit with Calcium,Iron,Min [Women's Daily Formula] 1 each PO DAILY 12/31/17 Ondansetron [Zofran Odt] 4 mg PO Q8H #20 tab.rapdis 12/31/17 Disposition Discussed With: Patient, Family
== END 2017-12-31 20:44 | disposition home or self-care (01) ==
LOC: ED 18:35
DX: G43.909 Migraine, unspecified, not intractable, without status migrainosus (principal); F17.210 Nicotine dependence, cigarettes, uncomplicated
CPT/HCPCS: 36415; 80053; 81001; 82150; 83690; 85025; 96372; 99283

== ENCOUNTER 2018-10-01 09:54 | Outpatient (CLI) | END 2018-10-01 09:55 | disposition home or self-care (01) | LOC: RHC-LAB 09:54 | PROVIDERS: ATTEND Nurse Practitioner Family | DX: R07.9 Chest pain, unspecified (principal); R20.0 Anesthesia of skin; Z72.0 Tobacco use; Z00.00 Encounter for general adult medical examination without abnormal findings; E55.9 Vitamin D deficiency, unspecified | CPT/HCPCS: 36415; 80053; 80061; 82306; 85025 ==

== ENCOUNTER 2018-11-07 14:21 | Outpatient (CLI) | END 2018-11-07 14:22 | disposition home or self-care (01) | LOC: RHC-LAB 14:21 | PROVIDERS: ATTEND Nurse Practitioner Family | DX: R05 Cough (principal); J02.9 Acute pharyngitis, unspecified | CPT/HCPCS: 87502; 87651 ==

== ENCOUNTER 2018-12-25 08:49 | Outpatient (CLI) ==
--- NOTE | 2018-12-25 09:13 | DI ---
EXAM: Three views of the right shoulder. History: Right shoulder pain. Findings: No acute fracture or dislocation. No abnormal calcifications or radiopaque foreign bodies . Joint spaces are preserved. Impression: Unremarkable exam
--- NOTE | 2018-12-25 10:54 | MRI ---
EXAM: MRI right shoulder without contrast. HISTORY: Osteoarthritis. Posterior shoulder pain up to neck. Painful abduction of right arm. No r ight shoulder surgery reported. TECHNIQUE: Using a local coil on a high field strength magnet multiplanar multisequence MRI was perf ormed of the right shoulder without intravenous or intra-articular gadolinium contrast. COMPARISON: MRI right shoulder 12/08/2013. Three-view plain film examination right shoulder 019. FINDINGS: A Type I acromion. Coracoacromial ligament/arch intact without definitive thickening. Mi nimal right acromioclavicular joint arthrosis with some capsular/ligamentous hypertrophy. Deltoid mu sculature shows some fatty infiltration. Tiny 7 mm fluid signal intensity cyst lying just beneath th e proximal anterior deltoid bundle. Otherwise no significant free fluid subacromial/subdeltoid bursa . Muscle bulk of the rotator cuff shows no acute muscle strain or overt atrophy.. Supraspinatus tendin osis. This extends over the supraspinatus/infraspinatus insertional interval with some fraying. Oth erwise no partial or full-thickness rotator cuff tear identified. Posterior inferior intact teres mi nor tendon fibers. Anterior intact subscapularis tendon fibers. The long head of the biceps tendon shows intact fibers located in expected position within the bicipital groove and within normal limit in signal intensity and morphology. The right humeral head is of normal morphology and seated. No right glenohumeral joint centered subc hondral bone marrow edema or bone erosions. Physiologic amount of fluid right glenohumeral joint. R ight glenoid labrum grossly intact on this non-arthrographic examination.. IMPRESSION: Minimal right acromioclavicular joint arthrosis. Tiny 7 mm fluid signal intensity cysts lying just beneath the proximal anterior deltoid bundle. Mild supraspinatus/infraspinatus tendinosis. Some bursal sided fraying. No partial or full-thicknes s rotator cuff tear identified.
== END 2018-12-25 08:50 | disposition home or self-care (01) ==
LOC: RAD 08:49
PROVIDERS: ATTEND Pain Medicine Interventional Pain Medicine
DX: M19.011 Primary osteoarthritis, right shoulder (principal)

== ENCOUNTER 2025-06-10 17:37 | Inpatient (IN) ==
--- NOTE | 2025-06-10 17:45 | ED.PDOC ---
General [facility] ED Provider: Dr. JOHAN UGARTE MD Chief Complaint: Cellulitis Stated Complaint: Patient is a 45-year-old female that reported to the emergency department for cellulitis of the abdomen. Patient stated that she noticed approximately 4 days ago a boil on her panniculus. 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 Patient stated that she has been on Bactrim for 1 day. Patient stated that today she went to her primary care provider's office because there was redness spreading further around the boil. Patient stated that her primary care provider sent to the ER for further evaluation. Patient stated that there has not been any drainage from the area. Patient stated that she has not treated the area with topical antibiotic ointment either. Patient stated that the area was tender to palpation. Patient stated that she is on pain management and takes [place] 7.5 mg and her medication has not touched her pain. Patient denied any fever, lymphadenopathy, or any other acute symptoms at the current time. Patient's vital signs are currently stable. Patient's GCS is 15. Time Seen by Provider: 06/10/25 17:39 Mode of Arrival: Walk-In Information Source: Patient Exam Limitations: No limitations Primary Care Provider: ANTHONY HUFF APRN,[facility] Nursing and Triage Documentation Reviewed and Agree: Yes Opioid Naive vs. Tolerant What is Opioid Naive?: *Opioid Naive implies the patient is not already taking opioids or not chronically receiving opioids on a daily basis. *PRN dosing is not "usually" associated with tolerance. *Patients are at higher risk of over-sedation and aspiration. What is Opioid Tolerant?: *Opioid Tolerance implies less than the expected response to an opioid. *Acquired tolerance is defined by the patient taking 60mg of oral morphine daily (or equianalgesic dose of another opioid) for 1 week or more. *Often associated with chronic pain. *May take more than usual dose to achieve desired pain control. Review of Systems Review Of Systems Constitutional: Reports No symptoms Skin: Reports Other (Cellulitis of abdomen) All Other Systems: Reviewed and Negative [facility] Medical History Depression F32.9 - Major depressive disorder, single episode, unspecified (ICD-10) Anxiety F41.9 - Anxiety disorder, unspecified (ICD-10) Family History Paternal grandmother No problems noted. Other RA (rheumatoid arthritis) Social History Smoking and tobacco status: Current every day smoker Surgical History gall bladder History of gynecological procedure ablation Z98.890 - Other specified postprocedural states (ICD-10) History of gastrointestinal surgery Dilation of esophagus Z98.890 - Other specified postprocedural states (ICD-10) History of tubal ligation Z98.51 - Tubal ligation status (ICD-10) Status post hysterectomy partial Z90.710 - Acquired absence of both cervix and uterus (ICD-10) Esophagus widened Status post cholecystectomy Z90.49 - Acquired absence of other specified parts of digestive tract (ICD- 10) Female Reproductive History Menstrual Hx Hysterectomy: Yes Hx Tubal Ligation: Yes Physical Exam Physical Exam Appearance: Reports Well-appearing and Obese Ill-appearing: None Pain Distress: None ENT: Reports Not Examined Neck: Supple Respiratory: Reports Airway patent, Breath sounds clear, Breath sounds equal and Respirations nonlabored Cardiovascular: Reports RRR, Pulses normal, No rub and No murmur GI/: Reports Soft, No masses and Bowel sounds normal Musculoskeletal: Reports Normal strength Skin: Reports Warm, Dry and Other (Patient has a 6 cm x 2 cm indurated area on the right lower side of her abdomen. It is surrounded by a 22 cm x 11 cm erythematous area that is cellulitic appearing.) Neurological: Reports Alert and Oriented Psychiatric: Reports Affect appropriate and Mood appropriate Physician Progress Note Physician Progress Note: Patient is a 45-year-old female that reported to the emergency department for cellulitis of the abdomen. Patient stated that she noticed approximately 4 days ago a boil on her panniculus. 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 Patient stated that she has been on Bactrim for 1 day. Patient stated that today she went to her primary care provider's office because there was redness spreading further around the boil. Patient stated that her primary care provider sent to the ER for further evaluation. Patient stated that there has not been any drainage from the area. Patient stated that she has not treated the area with topical antibiotic ointment either. Patient stated that the area was tender to palpation. Patient stated that she is on pain management and takes [place] 7.5 mg and her medication has not touched her pain. Patient denied any fever, lymphadenopathy, or any other acute symptoms at the current time. Patient's vital signs are currently stable. Patient's GCS is 15. - Patient has cellulitis of the abdomen. Use bedside ultrasound to identify the small 6 x 2 cm abscess on the panniculus. It was surrounded by a area of 22 x 11 cm cellulitis. -Will give 1 treatment of IV antibiotics in the emergency department. Will give IV clindamycin 600 mg and IV Cipro 400 mg once for cellulitis. - Will order baseline labs and a wound culture. - I use lidocaine 4 cc to numb the area around the abscess of the pannicular. Prepped the area with Betadine. Used a 16-gauge bore needle to attempt to withdrawal fluid from the abscess. 0.5 cc of purulent fluid removed via ultrasound guidance. Patient tolerated the procedure well. -Patient continued to have pain in the cellulitis area rated at a 8 out of 10. Gave patient IV Dilaudid 1 mg. - CT of the abdomen and pelvis showed findings suggesting cellulitis in the lower abdominal superficial soft tissues with an adjacent 2.1 cm abscess. -Nursing staff stated that the patient had chest pressure after the Dilaudid. Will order EKG and troponin to rule out cardiovascular as the reasoning for the chest pressure. - EKG shows sinus rhythm with a first-degree AV block. Normal axis is noted. Ventricular rate 88 bpm. No acute STEMI. EKG interpreted by ER physician. - Troponin is negative. Patient's chest pressure previously was due to the dose of Dilaudid and not cardiovascular. -([id number]) spoke to hospitalist here at [facility], Sameer Braden NP, who is excepted this patient for cellulitis of the abdomen for IV antibiotic therapy due to failure of outpatient p.o. antibiotic therapy. Patient's vital signs are stable at time of admission for observation. Discussed this plan with the patient and she is agreeable for admission for observation. Course Course 06/10/25 18:08 06/10/25 18:08 Orders, Labs, Meds: Lab Review 06/10/25 18:08 WBC 8.76 RBC 4.88 Hgb 15.2 Hct 46.8 MCV 95.9 MCH 31.1 H MCHC 32.5 RDW Coeff of Prerna 14.3 Plt Count 261 Immature Gran % (Auto) 0.5 Neut % (Auto) 57.5 Lymph % (Auto) 33.7 [place] % (Auto) 5.1 Eos % (Auto) 2.7 Baso % (Auto) 0.5 Neut # (Auto) 5.0 Lymph # (Auto) 3.0 [place] # (Auto) 0.5 Eos # (Auto) 0.2 Baso # (Auto) 0.0 Immature Gran # (Auto) 0.0 Sodium 136.9 Potassium 3.51 Chloride 106.9 Carbon Dioxide 21.6 L Anion Gap 11.91 BUN 6.8 L Creatinine 0.97 Estimated GFR (MDRD) 62.00 BUN/Creatinine Ratio 7.01 Glucose 130.0 H Calcium 8.65 Total Bilirubin 0.49 AST 51.1 H ALT 38.3 H Alkaline Phosphatase 87.2 Troponin I < 0.012 Total Protein 7.53 Albumin 4.14 Globulin 3.39 Albumin/Globulin Ratio 1.22 Orders Category Date Time Status EKG-(ED & IP/OBS ONLY) Stat CARDIO 06/10/25 20:46 Completed NPO REMINDER: IMAGING ONCE CARE 06/10/25 17:44 Completed IV [ED IV/MEDIPORT/POWERPORT] .ONCE EMERGENCY 06/10/25 17:44 Active CBC W/ AUTO DIFF Stat LAB 06/10/25 18:08 Completed CMP [COMPREHENSIVE METABOLIC PANEL] Stat LAB 06/10/25 18:08 Completed TROPONIN I Stat LAB 06/10/25 18:08 Completed WOUND CULTURE Stat LAB 06/10/25 17:45 Uncollected 0.9 % Sodium Chloride [Saline Flush] Meds 06/10/25 17:44 Active 1 syr IVF PRN PRN Ciprofloxacin/D5w [Cipro 400 mg/200 ml D5w] Meds 06/10/25 18:06 Discontinued 400 mg in 200 ml IV ONCE Clindamycin Phosphate/D5w [Cleocin 600 mg/50 ml D5w] Meds 06/10/25 18:06 Discontinued 600 mg in 50 ml IV ONCE Hydromorphone HCl [Dilaudid 1 mg/ml Syringe] Meds 06/10/25 19:47 Discontinued 1 mg IVP ONCE STA Iohexol [Omnipaque 350 mg/ml 100Ml] Meds 06/10/25 18:36 Discontinued 100 ml IVP ONCE ONE Lidocaine HCl/Pf [Lidocaine 1% 5 ml Sdv] Meds 06/10/25 18:08 Discontinued [address] ONE CT ABDOMEN/PELVIS W CONTRAST Stat RADS 06/10/25 17:43 Completed Medications Generic Name Dose Route Start Last Admin Trade Name Freq PRN Reason Stop Dose Admin Sodium Chloride 1 syr 06/10/25 17:44 0.9% Sodium Chloride 10 Ml Disp.Syrin IVF PRN PRN To flush IV Discontinued Medications Generic Name Dose Route Start Last Admin Trade Name Freq PRN Reason Stop Dose Admin Hydromorphone HCl 1 mg 06/10/25 19:47 06/10/25 19:54 Hydromorphone Hcl 1 Mg/Ml Syringe IVP 06/10/25 19:48 1 mg ONCE STA Administration Clindamycin Phosphate 600 mg in 50 mls @ 75 mls/hr 06/10/25 18:06 06/10/25 18:20 Cleocin 600 Mg/50 Ml D5w IV 06/10/25 18:45 75 mls/hr ONCE ONE Administration Ciprofloxacin/Dextrose 400 mg in 200 mls @ 200 mls/hr 06/10/25 18:06 06/10/25 19:31 Cipro 400 Mg/200 Ml D5w IV 06/10/25 19:05 200 mls/hr ONCE ONE Administration Iohexol 100 ml 06/10/25 18:36 06/10/25 18:36 Iohexol 350 Mg/Ml 100ml IVP 06/10/25 18:37 100 ml ONCE ONE Administration Lidocaine HCl 5 ml 06/10/25 18:08 06/10/25 18:19 Lidocaine 1% 5 Ml Sdv SUBCUT 06/10/25 18:09 5 ml ONCE ONE Administration Vital Signs: Temp Pulse Resp BP Pulse Ox 06/10/25 17:40 97.4 F L 94 18 123/91 H 97 Discharge Plan Discharge Patient Disposition: PLACED OBSERVATION Discharge Problem: Abdominal wall cellulitis, Abdominal wall abscess Did you review [place] [employer] for ALL controlled substances?: Not Applicable ED Provider: JOHAN UGARTE Condition: Stable
[2025-06-10 18:12] LABS: IMMATURE GRANULOCYTE # (AUTO) 0.0 (0.0-1.0); IMMATURE GRANULOCYTE % (AUTO) 0.5 % (0.0-5.0); RDW COEFFICIENT OF VARIATION 14.3 % (11.6-14.8)
[2025-06-10] MEDS: LIDOCAINE 1% 5 ML SDV SUBCUT ONE (18:19)
[2025-06-10] MEDS: CLEOCIN 600 MG/50 ML D5W 600 MG/50 ML BAG IV ONE (18:20)
[2025-06-10 18:25] LABS: CREATININE 0.97 mg/dL (0.60-1.30)
[2025-06-10] MEDS: OMNIPAQUE 350 MG/ML 100ML IVP ONE (18:36)
--- NOTE | 2025-06-10 19:04 | CT ---
EXAM: CT ABDOMEN PELVIS WITH CONTRAST HISTORY: Cellulitis of the lower abdomen COMPARISON: 01/09/2017. TECHNIQUE: Serial axial images of the abdomen pelvis were performed after Omnipaque IV contrast was administered. FINDINGS: Skin thickening and superficial soft tissue edema involving the lower abdomen anterior soft tissues. 2.1 x 1.6 x 1.0 cm (AP by transverse by cranial caudal) fluid collection in the adjacent subcutaneous tissues (axial images 75 - 77 and sagittal images 57 - 62). Diverticulosis. No diverticulitis. No dilated loops of bowel. The appendix is normal. No acute process in the pelvis. Suspected postsurgical changes in the pelvis. No acute process involving the liver, pancreas, spleen, kidneys or adrenal glands. Degenerative changes to the spine, pelvis and hips. IMPRESSION: Findings suggesting cellulitis in the lower abdominal superficial soft tissues with an adjacent 2.1 cm abscess. Please see above description and image numbers. No other acute CT findings in the abdomen or pelvis. Please see above description. All CT scans are performed using dose optimization techniques as appropriate to the performed exam and include at least one of the following: Automated exposure control, adjustment of the mA and/or kV according to size, and the use of iterative reconstruction technique.
[2025-06-10] MEDS: CIPRO 400 MG/200 ML D5W 400 MG/200 ML BAG IV ONE (19:31)
[2025-06-10] MEDS: DILAUDID 1 MG/ML SYRINGE IVP STA (19:54)
[2025-06-10 23:52] VITALS: BMI 35.5
[2025-06-11] MEDS ORDERED: VENTOLIN HFA IH PRN (05:11)
[2025-06-11] MEDS ORDERED: DRISDOL PO SCH (05:30)
[2025-06-11] MEDS: NORCO 7.5-325 PO PRN (05:35)
[2025-06-11] MEDS: TORADOL IVP PRN (05:36)
[2025-06-11 06:28] LABS: IMMATURE GRANULOCYTE # (AUTO) 0.0 (0.0-1.0); IMMATURE GRANULOCYTE % (AUTO) 0.3 % (0.0-5.0); RDW COEFFICIENT OF VARIATION 14.4 % (11.6-14.8)
[2025-06-11 06:43] LABS: CREATININE 0.9 mg/dL (0.60-1.30)
[2025-06-11] MEDS ORDERED: HUMULIN R (10ML) SUBCUT PRN (07:15)
[2025-06-11] MEDS ORDERED: VANCOMYCIN 1 GRAM/200 ML PREMIX 1 GM/200 ML BAG IV ONE (08:00)
[2025-06-11] MEDS: ANCEF 2 GM/50 ML PREMIX 2 GM/50 ML BAG IV SCH (08:41)
[2025-06-11] MEDS: GLUCOPHAGE PO SCH (08:48)
[2025-06-11] MEDS: KENALOG TP SCH (08:48)
[2025-06-11] MEDS: NON-FORMULARY MEDICATION (Phentermine 37.5 mg tablet) PO SCH (08:49)
[2025-06-11] MEDS: [UNRECOGNIZED DRUG - MIXTURE] PO SCH (08:49)
[2025-06-11] MEDS: BUPROPION HCL 100 MG PO SCH (08:49)
[2025-06-11] MEDS: CRESTOR PO SCH (08:50)
[2025-06-11] MEDS: PROTONIX PO SCH (08:50)
[2025-06-11] MEDS: LOVENOX SUBCUT SCH (08:50)
[2025-06-11] MEDS: SODIUM CHLORIDE 1,000 ML IV SCH (08:51)
[2025-06-11] MEDS ORDERED: BACTRIM DS 800/160 MG PO SCH (09:00)
[2025-06-11] MEDS ORDERED: VANCOMYCIN 1 GRAM/200 ML PREMIX 1 GM/200 ML BAG IV SCH (09:00)
[2025-06-11] MEDS: VANCOMYCIN 1 GRAM/200 ML PREMIX 1 GM/200 ML BAG IV ONE ×2 (10:35→11:40)
--- NOTE | 2025-06-11 10:54 | PCM ---
Date of Service Date Seen by Provider: 06/11/25 Time Seen by Provider: 08:35 Admit Day/Time Admission Date: 06/10/25 Admission Time: 22:15 Reason for Admission Chief Complaint: ABD WALL CELLULITIS, ABD WALL ABSCESS Hospital Provider Hospital Provider: GEOVANNA FELIX, [facility] [place] Phys[place] Primary Care Physician: ANTHONY HUFF APRN,[facility] History of Present Illness History of Present Illness: 45 yo female with pmh of anxiety/depression, HLD, GERD, and obesity presented to the ER for an abscess to her pannus. Patient states she found the area on Wednesday 06/06 with green drainage at that time. Expressed the area herself and has since closed up. Saw a provider through her employer on Saturday and was prescribed Bactrim. Had only taken a total of 3 doses. Saw PCP Anthony Huff yesterday and was directed to the ER. Anthony reported an abscess measuring 4cm x 4cm with surrounding cellulitis that was 17 cm wide and 10 cm in height. Patient denies any fever since all of this started. Has c/o severe pain that has not been controlled with her norco that she takes for chronic pain. No elevation in WBC count in ER, no fever or tachycardia. CT showed cellulitis to lower abdominal olivas perficial soft tissues with adjacent 2.1 x 1.[address] Palacios reports he attempted to I&D in ER and was only able to drain 0.5 mL of purulent discharge. Culture was not collected. Stated that he spoke with surgeon at [facility] that reports I&D is not necessary with this small of an abscess and to start with 24-48 hours of antibiotics and see if patient improves. Patient continues to c/o severe pain. Was given dilaudid in the ER without relief and given toradol and home norco with minimal relief. Initially admitted to med/surg observation. Case Discussed With Case Discussed With: Patient's case was discussed with the ER Physicians, Dr. Palacios. [facility] Medical History Depression F32.9 - Major depressive disorder, single episode, unspecified (ICD-10) Anxiety F41.9 - Anxiety disorder, unspecified (ICD-10) Surgical History gall bladder History of gynecological procedure ablation Z98.890 - Other specified postprocedural states (ICD-10) History of gastrointestinal surgery Dilation of esophagus Z98.890 - Other specified postprocedural states (ICD-10) History of tubal ligation Z98.51 - Tubal ligation status (ICD-10) Status post hysterectomy partial Z90.710 - Acquired absence of both cervix and uterus (ICD-10) Esophagus widened Status post cholecystectomy Z90.49 - Acquired absence of other specified parts of digestive tract (ICD- 10) Family History Paternal grandmother RA (rheumatoid arthritis) PATERNAL GRANDMOTHER RA (rheumatoid arthritis) Mother RA (rheumatoid arthritis) Social History Smoking and tobacco status: Former smoker How long ago did patient quit smokin yrs ago Alcohol intake: unknown Substance use type: does not use Special milton needs: No Agree to transfusion: Yes Adopted: No Caregiver/support person: No Foster care: No Housing: house Marital status: S SINGLE Lives independently: Yes Daycare: no daycare Number of children: 2 Number of grandchildren: 2 Highest education level completed: some college, no degree Financial difficulty paying for basics: somewhat hard service: No jail: No Current occupational status: employed Current occupation: [employer] Pets and animals: No Do you think of yourself as: straight/heterosexual Current gender identity: female Seatbelt use: always Helmet use: Yes Drives intoxicated or rides with intoxicated water truck driver: No Current diet type/program: regular and low salt Water heater temperature set < 120 degrees: Yes Working smoke detector in home: Yes Fire extinguisher in home: No Carbon monoxide detector in home: No Firearms in home: No Allergies Allergies Allergy/AdvReac Type Severity Reaction Status Date / Time No Known Allergies Allergy none Uncoded 06/10/25 17:50 Current Medications Home Medications Hydrocodone Bitart/Acetaminophen (Hydrocodone Bit/Acetaminophen 7.5/325 Mg Tablet) 1 tab PO Q8H PRN PRN Reason: Pain Last Admin: 06/11/25 05:35 Dose: 1 tab Albuterol Sulfate (Albuterol Sulfate 8 Gm Inhaler) 2 puff IH Q6H PRN PRN Reason: SOB Enoxaparin Sodium (Enoxaparin Sodium 40 Mg/0.4 Ml Syr) 40 mg SUBCUT DAILY [facility] Last Admin: 06/11/25 08:50 Dose: 40 mg Cefazolin Sodium/Dextrose (Ancef 2 Gm/50 Ml Premix) 2 gm in 50 mls @ 75 mls/hr IV Q8HR [facility] Stop: 06/14/25 07:29 Last Admin: 06/11/25 08:41 Dose: 75 mls/hr Sodium Chloride (Sodium Chloride) 1,000 mls @ 75 mls/hr IV .[id number] [facility] Last Admin: 06/11/25 08:51 Dose: 75 mls/hr VANCOMYCIN/WATER FOR INJ (PEG) (Vancomycin 1.5 Gram/300 Ml Premix) 1.5 gm in 300 mls @ 200 mls/hr IV Q12HR [facility] Stop: 06/14/25 20:59 Ketorolac Tromethamine (Ketorolac Tromethamine 15 Mg/Ml Vial) 15 mg IVP Q6HR PRN PRN Reason: Abdominal Pain Stop: 06/15/25 05:17 Last Admin: 06/11/25 11:04 Dose: 15 mg Metformin HCl (Metformin Hcl 500 Mg Tablet) 1,000 mg PO BIDWM2 [facility] On Hold: 06/11/25 09:00 Last Admin: 06/11/25 08:48 Dose: Not Given Morphine Sulfate (Morphine Sulfate 2 Mg/Ml Syringe) 2 mg IVP Q6H PRN PRN Reason: Severe Pain Non-Formulary Medication (Bupropion Hcl [Wellbutrin Sr]) 100 mg PO BID [facility] Last Admin: 06/11/25 08:49 Dose: 100 mg Non-Formulary Medication (Phentermine) 37.5 mg PO DAILY [facility] Last Admin: 06/11/25 08:49 Dose: 37.5 mg Non-Formulary Medication (Topiramate) 200 mg PO DAILY [facility] Last Admin: 06/11/25 08:49 Dose: 200 mg Non-Formulary Medication (Vortioxetine [Trintellix]) 10 mg PO DAILY [facility] Last Admin: 06/11/25 10:35 Dose: Not Given Non-Formulary Medication (L. Reuteri-L. Rhamnosus [Rephresh Pro-B]) 1 cap PO DAILY [facility] Last Admin: 06/11/25 08:49 Dose: 1 cap Pantoprazole Sodium (Pantoprazole Sodium 40 Mg Tablet.) 40 mg PO QDAC2 [facility] Rosuvastatin Calcium (Rosuvastatin Calcium 10 Mg Tablet) 5 mg PO DAILY [facility] Last Admin: 06/11/25 08:50 Dose: 5 mg Sodium Chloride (0.9% Sodium Chloride 10 Ml Disp.Syrin) 1 syr IVF PRN PRN PRN Reason: To flush IV Triamcinolone Acetonide (Triamcinolone Acetonide 80 Gm Cream) 1 applic TP BID [facility] Last Admin: 06/11/25 08:48 Dose: 1 applic hydrocodone 7.5 mg-acetaminophen 325 mg tablet 1 tab PO Q8H PRN pain 07/17/21 [History Confirmed 06/10/25] bupropion HCl 100 mg tablet,12 hr sustained-release (Wellbutrin SR) 100 mg PO BID 02/06/22 [History Confirmed 06/10/25] triamcinolone acetonide 0.1 % topical cream 1 applic topical BID eczematous rash #80 grams 02/01/25 [Rx Confirmed 06/10/25] albuterol sulfate 90 mcg/actuation aerosol inhaler (Ventolin HFA) 2 puff inhalation Q6H PRN shortness of breath or wheezing #8.5 grams 05/06/25 [Rx Confirmed 06/10/25] ergocalciferol (vitamin D2) 1,250 mcg (50,000 unit) capsule (Vitamin D2) 1,250 mcg PO .twice weekly vitamin D deficiency 90 days #30 caps 05/06/25 [Rx Confirmed 06/10/25] metformin 1,000 mg tablet 1,000 mg PO BID #180 tabs 05/06/25 [Rx Confirmed 06/10/25] pantoprazole 40 mg tablet,delayed release See Rx Instructions .Route .COMPLEX #90 tabs 05/06/25 [Rx Confirmed 06/10/25] rosuvastatin 5 mg tablet 5 mg PO DAILY for cholesterol #90 tabs 05/06/25 [Rx Confirmed 06/10/25] topiramate 200 mg capsule,extended release 24 hr 200 mg PO QDAY migraine headache #90 caps 05/06/25 [Rx Confirmed 06/10/25] vortioxetine 10 mg tablet (Trintellix) 10 mg PO QDAY #90 tabs 05/06/25 [Rx Co nfirmed 06/10/25] phentermine 37.5 mg tablet 37.5 mg PO QDAY weight loss bmi 35.1 #30 tabs 06/03/25 [Rx Confirmed 06/10/25] sulfamethoxazole 800 mg-trimethoprim 160 mg tablet (Bactrim DS) 1 tab PO BID 06/10/25 [History Confirmed 06/10/25] Lactobacillus reuteri-Lactobacillus rhamnosus 5 billion cell capsule (RepHresh Pro-B) 1 cap PO DAILY [facility] 06/11/25 [History Confirmed 06/11/25] Opioid Naive vs. Tolerant Does Patient Take Opioids?: Yes Is Patient Opioid Naive?: No What is Opioid Naive?: *Opioid Naive implies the patient is not already taking opioids or not chronically receiving opioids on a daily basis. *PRN dosing is not "usually" associated with tolerance. *Patients are at higher risk of over-sedation and aspiration. Is Patient Opioid Tolerant?: No What is Opioid Tolerant?: *Opioid Tolerance implies less than the expected response to an opioid. *Acquired tolerance is defined by the patient taking 60mg of oral morphine daily (or equianalgesic dose of another opioid) for 1 week or more. *Often associated with chronic pain. *May take more than usual dose to achieve desired pain control. Review of Systems Constitutional: Reports Sweats; Denies Fever or Chills Head: Reports Normocephalic Eyes: Reports No symptoms Ears: Reports No symptoms Nose: Reports No symptoms Mouth: Reports No symptoms Throat: Reports No symptoms Cardiovascular: Reports No symptoms Respiratory: Reports No symptoms Gastrointestinal: Reports No symptoms Genitourinary: Reports No Symptoms Musculoskeletal: Reports No symptoms Dermatologic: Reports Other (abscess to R lower abdomen in skin fold) Endocrine: Reports No symptoms Hematology: Reports No symptoms Immunology: Reports No symptoms Neurological: Reports No symptoms Psychiatric: Reports No symptoms Physical examination Most Recent Vital Signs: Most Recent Vital Signs Temperature 97.8 F 06/11/25 05:20 Temperature Source Temporal Artery Scan 06/11/25 05:20 Temperature Source Oral 06/10/25 17:40 Pulse Rate 92 06/11/25 05:20 Respiratory Rate 18 06/11/25 05:20 Blood Pressure 104/39 L 06/11/25 05:20 Blood Pressure Mean 60 06/11/25 05:20 Blood Pressure Left Arm 121/86 06/10/25 23:01 Blood Pressure Location Left Arm 06/11/25 05:20 Blood Pressure Position Supine 06/11/25 05:20 O2 Sat by Pulse Oximetry 98 06/11/25 05:20 Oxygen Delivery Method Room Air 06/11/25 08:39 Height 5 ft 7 in 06/10/25 23:01 Weight 102.9 kg 06/10/25 23:01 Appearance: Positive No Apparent Distress and Alert and Oriented x3 Skin: Positive Warm, Good Color and Other (abscess to R lower abdomen under skin fold, indurated, no open areas, mild erythema present) HEENT: Positive Normocephalic and PERRLA Neck: Positive Supple and Midline Trachea Chest/Lungs: Positive Symmetrical With Equal Breath Sounds, Clear to Auscultation Bilaterally and Good Air Movement all 4 Lung Hopper; Negative Rales, Rhonci or Wheezes Heart: Positive RRR and Pulses Normal GI/: Positive Soft, Nontender, Bowel Sounds Normal and No Distention Musculoskeletal: Positive Not Examined Extremities: Positive Intact Peripheral Pulses, Stable Joints Without Laxity and Good ROM in All Joints; Negative Edema Neurological: Positive Sensation Intact, Motor intact, Reflexes Intact, Alert, Oriented and Muscle Strength 5/5 in Upper and Lower Extremities Bilaterally Labs This Visit Labs This Visit: Labs This Visit 06/10/25 06/11/25 18:08 06:23 WBC 8.76 12.47 H RBC 4.88 4.28 Hgb 15.2 13.6 Hct 46.8 41.0 MCV 95.9 95.8 MCH 31.1 H 31.8 H MCHC 32.5 33.2 RDW Coeff of Prerna 14.3 14.4 Plt Count 261 199 Immature Gran % (Auto) 0.5 0.3 Neut % (Auto) 57.5 80.7 H Lymph % (Auto) 33.7 13.9 [place] % (Auto) 5.1 3.8 Eos % (Auto) 2.7 1.1 Baso % (Auto) 0.5 0.2 Neut # (Auto) 5.0 10.1 H Lymph # (Auto) 3.0 1.7 [place] # (Auto) 0.5 0.5 Eos # (Auto) 0.2 0.1 Baso # (Auto) 0.0 0.0 Immature Gran # (Auto) 0.0 0.0 Sodium 136.9 130.0 L Potassium 3.51 3.50 Chloride 106.9 107.0 Carbon Dioxide 21.6 L 18.0 L Anion Gap 11.91 8.50 BUN 6.8 L 7.0 Creatinine 0.97 0.90 Estimated GFR (MDRD) 62.00 67.00 BUN/Creatinine Ratio 7.01 7.77 Glucose 130.0 H 142.0 H Calcium 8.65 8.20 L Total Bilirubin 0.49 0.20 AST 51.1 H 69.0 H ALT 38.3 H 56.0 H Alkaline Phosphatase 87.2 120.0 D Troponin I < 0.012 Total Protein 7.53 6.10 L Albumin 4.14 3.30 L Globulin 3.39 2.80 Albumin/Globulin Ratio 1.22 1.17 Imaging Imaging: EXAM: CT ABDOMEN PELVIS WITH CONTRAST HISTORY: Cellulitis of the lower abdomen COMPARISON: 01/09/2017. TECHNIQUE: Serial axial images of the abdomen pelvis were performed after Omnipaque IV contrast was administered. FINDINGS: Skin thickening and superficial soft tissue edema involving the lower abdomen anterior soft tissues. 2.1 x 1.6 x 1.0 cm (AP by transverse by cranial caudal) fluid collection in the adjacent subcutaneous tissues (axial images 75 - 77 and sagittal images 57 - 62). Diverticulosis. No diverticulitis. No dilated loops of bowel. The appendix is normal. No acute process in the pelvis. Suspected postsurgical changes in the pelvis. No acute process involving the liver, pancreas, spleen, kidneys or adrenal glands. Degenerative changes to the spine, pelvis and hips. IMPRESSION: Findings suggesting cellulitis in the lower abdominal superficial soft tissues with an adjacent 2.1 cm abscess. Please see above description and image numbers. No other acute CT findings in the abdomen or pelvis. Review Statement Review Statement: I have independently reviewed and interpreted the labs/EKGs/imaging that were ordered by the ER provider. I have reviewed all outside records that are available currently in our EMR including imaging/notes/labs from previous visits. Plan Plan: 1. Cellulitis with abscess to R lower abdominal skin fold - MRSA ordered, vanc and ancef, no open area to culture, will reach out to gen surgery if no improvement after 24 hours of IV antibiotics 2. Intractable pain in setting of #1 - home norco dose restarted, toradol 15 mg Q6H prn for pain IV, and morphine 2 mg Q6H IV prn for pain for severe breakthrough pain 3. Hyponatremia - mild, NS@75mL/hr, no obvious offenders, may be due to infection and lack of water intake 4. Transaminitis - mild, likely due to infection, monitor for worsening 5. HLD - continue home medications 6. GERD - continue home medications DVT Prophylaxis: Lovenox Time Spent: Greater than 80 minutes spent with patient, 50% of the time spent with this patient was devoted to counseling and coordination of care. [facility] minutes spent discussing advance care planning. Disposition: Admit to: Med/surg Observation -> IP today due to continued pain and need for >48 hours of care. Full Code. Discussed Plan of Care with Dr. Courtney Jorge. Medications Medication Orders: Medications Ordered Category Date Time Status 0.9 % Sodium Chloride [Saline Flush] Meds 06/10/25 17:44 Active 1 syr IVF PRN PRN Albuterol Sulfate [Ventolin Hfa] Meds 06/11/25 05:11 Active 2 puff IH Q6H PRN SOB SOB Cefazolin Sodium/Dextrose,Iso [Ancef 2 gm/50 ml Premix] Meds 06/11/25 07:30 Active 2 gm in 50 ml IV Q8HR Enoxaparin Sodium [Lovenox] Meds 06/11/25 09:00 Active 40 mg SUBCUT DAILY Hydrocodone Bit/Acetaminophen [[employer] 7.5-325] Meds 06/11/25 05:11 Active 1 tab PO Q8H PRN PAIN Pain Ketorolac Tromethamine [Toradol] Meds 06/11/25 05:17 Active 15 mg IVP Q6HR PRN L. reuteri-L. rhamnosus [RepHresh Pro-B] Meds 06/11/25 09:00 Active 1 cap PO DAILY Metformin HCl [Glucophage] Meds 06/11/25 07:30 Hold 1,000 mg PO BIDWM2 Morphine Sulfate [Morphine 2 mg/ml Syringe] Meds 06/11/25 09:16 Active 2 mg IVP Q6H PRN Pantoprazole Sodium [Protonix] Meds 06/12/25 06:00 Active 40 mg PO QDAC2 Rosuvastatin Calcium [Crestor] Meds 06/11/25 09:00 Active 5 mg PO DAILY Sodium Chloride 0.9% [Sodium Chloride] 1,000 ml Meds 06/11/25 07:30 Active IV 75 mls/hr Triamcinolone Acetonide [Kenalog 0.1% 80 gm] Meds 06/11/25 09:00 Active 1 applic TP BID Vancomycin/Water For Inj (Peg) [Vancomycin 1.5 Gram/300 Meds 06/11/25 21:00 Active ml Premix] 1.5 gm in 300 ml IV Q12HR bupropion HCl [Wellbutrin SR] Meds 06/11/25 09:00 Active 100 mg PO BID phentermine Meds 06/11/25 09:00 Active 37.5 mg PO DAILY topiramate Meds 06/11/25 09:00 Active 200 mg PO DAILY vortioxetine [Trintellix] Meds 06/11/25 09:00 Active 10 mg PO DAILY
[2025-06-11] MEDS: MORPHINE 2 MG/ML SYRINGE IVP PRN (15:05)
[2025-06-11] MEDS: VANCOMYCIN 1.5 GRAM/300 ML PREMIX 1.5 GM/300 ML BAG IV SCH (21:31)
[2025-06-12 05:17] LABS: IMMATURE GRANULOCYTE # (AUTO) 0.0 (0.0-1.0); IMMATURE GRANULOCYTE % (AUTO) 0.3 % (0.0-5.0); RDW COEFFICIENT OF VARIATION 14.4 % (11.6-14.8)
[2025-06-12] MEDS: PROTONIX PO SCH (05:22)
[2025-06-12 05:35] LABS: CREATININE 0.82 mg/dL (0.60-1.30)
--- NOTE | 2025-06-12 09:28 | DCSUM ---
Admission Date Admission Date: 06/10/25 Discharge Date Discharge Date: 06/13/25 Admission Diagnosis Admission Diagnosis: 1. Cellulitis with abscess to R lower abdominal skin fold 2. Intractable pain in setting of #1 3. Hyponatremia 4. Transaminitis Discharge Diagnosis Discharge Diagnosis: 1. Cellulitis with abscess to R lower abdominal skin fold - Worsening 2. Intractable pain in setting of #1 - Continues 3. Hyponatremia - Resolved 4. Transaminitis - Continues 5. HLD - chronic, stable 6. GERD - chronic, stable 7. Metabolic acidosis - Resolved this [facility] Provider Hospital Provider: GEOVANNA FELIX, [facility] Primary Care Physician Primary Care Physician: ANTHONY HUFF APRN,[facility] Summary of History and Physical Summary of History and Physical: 45 yo female with pmh of anxiety/depression, HLD, GERD, and obesity presented to the ER for an abscess to her pannus. Patient states she found the area on Wednesday 06/06 with green drainage at that time. Expressed the area herself and has since closed up. Saw a provider through her employer on Saturday and was prescribed Bactrim. Had only taken a total of 3 doses. Saw PCP Anthony Huff yesterday and was directed to the ER. Anthony reported an abscess measuring 4cm x 4cm with surrounding cellulitis that was 17 cm wide and 10 cm in height. Patient denies any fever since all of this started. Has c/o severe pain that has not been controlled with her norco that she takes for chronic pain. No elevation in WBC count in ER, no fever or tachycardia. CT showed cellulitis to lower abdominal superficial soft tissues with adjacent 2.1 x 1.6 x [address] Palacios reports he attempted to I&D in ER and was only able to drain 0.5 mL of purulent discharge. Culture was not collected. Stated that he spoke with surgeon at [facility] that reports I&D is not necessary with this small of an abscess and to start with 24-48 hours of antibiotics and see if patient improves. Patient continues to c/o severe pain. Was given dilaudid in the ER without relief and given toradol and home norco with minimal relief. Initially admitted to med/surg observation. Hospital Course Subjective: During stay, patient receiving vancomycin and ancef for antibiotic coverage. No open area to culture on admission. MRSA obtained and negative. Per general surgery at [facility] Dr. Parikh, recommended antibiotics first to see if patient improves since abscess is smaller in size. Patient has had 72 hours of antibiotics with worsening. Abscess is approximately golf ball sized in appearance at this time with worsening erythema spreading up the abdomen. Switched from ancef to unasyn today. White count is normal and no fever present. CO2 has trended down likely due to infection present. Resolved with fluids. Liver enzymes remaining mildly elevated as well. Mild hyponatremia initially but resolved with fluids. Patient continues to require home norco, toradol, and morphine for pain control due to abscess being present. Requesting [facility] for transfer. Spoke with Dr. Parikh - General surgery and Dr. Roche - Hospitalist, who both accepted the patient for their care. Appearance: Pleasant, No Apparent Distress and Alert HEENT: MMM, Supple and No JVD CVS: No Murmur, No Rubs and No Gallop Abdomen: Soft, No Distention and Other (tenderness to R lower abdomen, abscess with significant erythema present, indurated) Respiratory: No Dyspnea Extremities: No Edema Vital Signs: Most Recent Vital Signs Temperature 97 F L 06/12/25 05:24 Temperature Source Temporal Artery Scan 06/12/25 05:24 Temperature Source Oral 06/10/25 17:40 Pulse Rate 75 06/12/25 05:24 Respiratory Rate 18 06/12/25 05:24 Blood Pressure 115/82 06/12/25 05:24 Blood Pressure Mean 93 06/12/25 05:24 Blood Pressure Left Arm 121/86 06/10/25 23:01 Blood Pressure Location Left Arm 06/12/25 05:24 Blood Pressure Position Supine 06/12/25 05:24 O2 Sat by Pulse Oximetry 99 06/12/25 05:24 Oxygen Delivery Method Room Air 06/12/25 05:24 Height 5 ft 7 in 06/10/25 23:01 Weight 102.9 kg 06/10/25 23:01 Imaging: EXAM: CT ABDOMEN PELVIS WITH CONTRAST HISTORY: Cellulitis of the lower abdomen COMPARISON: 01/09/2017. TECHNIQUE: Serial axial images of the abdomen pelvis were performed after Omnipaque IV contrast was administered. FINDINGS: Skin thickening and superficial soft tissue edema involving the lower abdomen anterior soft tissues. 2.1 x 1.6 x 1.0 cm (AP by transverse by cranial caudal) fluid collection in the adjacent subcutaneous tissues (axial images 75 - 77 and sagittal images 57 - 62). Diverticulosis. No diverticulitis. No dilated loops of bowel. The appendix is normal. No acute process in the pelvis. Suspected postsurgical changes in the pelvis. No acute process involving the liver, pancreas, spleen, kidneys or adrenal glands. Degenerative changes to the spine, pelvis and hips. IMPRESSION: Findings suggesting cellulitis in the lower abdominal superficial soft tissues with an adjacent 2.1 cm abscess. Please see above description and image numbers. No other acute CT findings in the abdomen or pelvis. Lab Results Last 24 Hours: 06/12/25 06/12/25 05:47 04:57 WBC 6.08 D RBC 4.33 Hgb 13.4 Hct 42.3 MCV 97.7 MCH 30.9 MCHC 31.7 L RDW Coeff of Prerna 14.4 Plt Count 188 Immature Gran % (Auto) 0.3 Neut % (Auto) 54.4 Lymph % (Auto) 31.4 [place] % (Auto) 9.5 Eos % (Auto) 3.9 Baso % (Auto) 0.5 Neut # (Auto) 3.3 Lymph # (Auto) 1.9 [place] # (Auto) 0.6 Eos # (Auto) 0.2 Baso # (Auto) 0.0 Immature Gran # (Auto) 0.0 Sodium 134.5 Potassium 3.88 Chloride 111.7 H Carbon Dioxide 16.0 L Anion Gap 10.68 BUN 7.0 Creatinine 0.82 Estimated GFR (MDRD) 75.00 BUN/Creatinine Ratio 8.53 Glucose 94.3 Lactic Acid 1.16 Calcium 7.82 L Total Bilirubin 0.20 AST 68.6 H ALT 67.5 H Alkaline Phosphatase 96.8 Total Protein 5.80 L Albumin 3.04 L Globulin 2.76 Albumin/Globulin Ratio 1.10 Discharge Instructions Discharge Planning: Discharge Planning > 40 minutes If patient is discharged with left ventricular systolic dysfunction: na Discharged with a beta aníbal? [] If no, why not? [] Discharged with an yoni/arb? [] If no, why not? [] Discharge Medications: Medications at Discharge (Home Meds & RX) hydrocodone 7.5 mg-acetaminophen 325 mg tablet 1 tab PO Q8H PRN pain 07/17/21 bupropion HCl 100 mg tablet,12 hr sustained-release (Wellbutrin SR) 100 mg PO BID 02/06/22 triamcinolone acetonide 0.1 % topical cream 1 applic topical BID eczematous rash #80 grams 02/01/25 albuterol sulfate 90 mcg/actuation aerosol inhaler (Ventolin HFA) 2 puff inhalation Q6H PRN shortness of breath or wheezing #8.5 grams 05/06/25 ergocalciferol (vitamin D2) 1,250 mcg (50,000 unit) capsule (Vitamin D2) 1,250 mcg PO .twice weekly vitamin D deficiency 90 days #30 caps 05/06/25 metformin 1,000 mg tablet 1,000 mg PO BID #180 tabs 05/06/25 pantoprazole 40 mg tablet,delayed release See Rx Instructions .Route .COMPLEX #90 tabs 05/06/25 rosuvastatin 5 mg tablet 5 mg PO DAILY for cholesterol #90 tabs 05/06/25 topiramate 200 mg capsule,extended release 24 hr 200 mg PO QDAY migraine headache #90 caps 05/06/25 vortioxetine 10 mg tablet (Trintellix) 10 mg PO QDAY #90 tabs 05/06/25 phentermine 37.5 mg tablet 37.5 mg PO QDAY weight loss bmi 35.1 #30 tabs 06/03/25 sulfamethoxazole 800 mg-trimethoprim 160 mg tablet (Bactrim DS) 1 tab PO BID 06/10/25 Lactobacillus reuteri-Lactobacillus rhamnosus 5 billion cell capsule (RepHresh Pro-B) 1 cap PO DAILY [facility] 06/11/25 Discharge Plan Discharge Discharge Orders: Discharge Patient (ONCE); Ordered 06/13/25 Ordered By: WILBUR OCTTO Patient Disposition: TSF SHORT-TRM HOSP Did you review [place] for ALL controlled substances?: No Discussed opioids are addictive and Narcan is available by prescription or from pharmacy.: Yes Condition: Stable
--- NOTE | 2025-06-12 14:05 | PCM.PROG ---
Date/Time Seen Date Seen by Provider: 06/12/25 Time Seen by Provider: 08:50 Provider Provider: GEOVANNA FELIX, [facility] Chief Complaint Chief Complaint: ABD WALL CELLULITIS, ABD WALL ABSCESS Subjective Subjective: Pain continues. Worsening redness surrounding abscessed area. No fever overnight. Objective Appearance: Positive No Apparent Distress and Alert and Oriented x3 Chest/Lungs: Positive Symmetrical With Equal Breath Sounds, Clear to Auscultati on Bilaterally and Good Air Movement all 4 Lung Hopper; Negative Rales, Rhonci or Wheezes Heart: Positive RRR and Pulses Normal GI/: Positive Soft, Bowel Sounds Normal, No Distention and Tender (to R lower abdomen, abscess present, indurated, no open area with discharge, significant worsening erythema and swelling) Musculoskeletal: Positive Not Examined Neurological: Positive Sensation Intact, Motor intact, Reflexes Intact, Alert, Oriented and Muscle Strength 5/5 in Upper and Lower Extremities Bilaterally Vital Signs Vital Signs: Vital Signs: Last 24 Hours 06/11/25 18:00 06/11/25 20:00 06/11/25 21:35 Temperature 96.7 F L 98.3 F Temperature Source Temporal Artery Scan Temporal Artery Scan Pulse Rate 93 87 Respiratory Rate 18 20 Blood Pressure 95/63 101/69 Blood Pressure Mean 73 79 Blood Pressure Location Left Arm Left Arm Blood Pressure Position Supine O2 Sat by Pulse Oximetry 100 98 Oxygen Delivery Method Room Air Room Air Room Air 06/12/25 05:24 06/12/25 10:00 Temperature 97 F L 96.0 F L Temperature Source Temporal Artery Scan Temporal Artery Scan Pulse Rate 75 85 Respiratory Rate 18 14 Blood Pressure 115/82 103/78 Blood Pressure Mean 93 86 Blood Pressure Location Left Arm Left Arm Blood Pressure Position Supine O2 Sat by Pulse Oximetry 99 100 Oxygen Delivery Method Room Air Room Air Lab Results Lab Results: Lab Results: Last 24 Hours 06/12/25 06/12/25 05:47 04:57 WBC 6.08 D RBC 4.33 Hgb 13.4 Hct 42.3 MCV 97.7 MCH 30.9 MCHC 31.7 L RDW Coeff of Prerna 14.4 Plt Count 188 Immature Gran % (Auto) 0.3 Neut % (Auto) 54.4 Lymph % (Auto) 31.4 [place] % (Auto) 9.5 Eos % (Auto) 3.9 Baso % (Auto) 0.5 Neut # (Auto) 3.3 Lymph # (Auto) 1.9 [place] # (Auto) 0.6 Eos # (Auto) 0.2 Baso # (Auto) 0.0 Immature Gran # (Auto) 0.0 Sodium 134.5 Potassium 3.88 Chloride 111.7 H Carbon Dioxide 16.0 L Anion Gap 10.68 BUN 7.0 Creatinine 0.82 Estimated GFR (MDRD) 75.00 BUN/Creatinine Ratio 8.53 Glucose 94.3 Lactic Acid 1.16 Calcium 7.82 L Total Bilirubin 0.20 AST 68.6 H ALT 67.5 H Alkaline Phosphatase 96.8 Total Protein 5.80 L Albumin 3.04 L Globulin 2.76 Albumin/Globulin Ratio 1.10 Additional Comments Additional Comments: I have independently reviewed and interpreted the labs/EKGs/imaging ordered during this hospital stay. I have reviewed outside records that are available in our EMR that pertain to medical stay including imaging/notes/labs from previous visits. Active Medications Active Medications: Medications Generic Name Dose Route Start Last Admin Trade Name Freq PRN Reason Stop Dose Admin Hydrocodone Bitart/Acetaminophen 1 tab 06/11/25 05:11 06/12/25 00:53 Hydrocodone Bit/Acetaminophen 7.5/325 Mg Tablet PO 1 tab Q8H PRN Administration Pain Albuterol Sulfate 2 puff 06/11/25 05:11 Albuterol Sulfate 8 Gm Inhaler IH Q6H PRN SOB Enoxaparin Sodium 40 mg 06/11/25 09:00 06/12/25 08:42 Enoxaparin Sodium 40 Mg/0.4 Ml Syr SUBCUT 40 mg DAILY MADI Administration Cefazolin Sodium/Dextrose 2 gm in 50 mls @ 75 mls/hr 06/11/25 07:30 06/12/25 13:11 Ancef 2 Gm/50 Ml Premix IV 06/14/25 07:29 75 mls/hr Q8HR MADI Administration Sodium Chloride 1,000 mls @ 75 mls/hr 06/11/25 07:30 06/12/25 03:21 Sodium Chloride IV 75 mls/hr .[id number] MADI Administration VANCOMYCIN/WATER FOR INJ (PEG) 1.5 gm in 300 mls @ 200 mls/hr 06/11/25 21:00 06/12/25 08:43 Vancomycin 1.5 Gram/300 Ml Premix IV 06/14/25 20:59 200 mls/hr Q12HR MADI Administration Ketorolac Tromethamine 15 mg 06/11/25 05:17 06/12/25 13:14 Ketorolac Tromethamine 15 Mg/Ml Vial IVP 06/15/25 05:17 15 mg Q6HR PRN Administration Abdominal Pain Metformin HCl 1,000 mg 06/11/25 07:30 06/11/25 08:48 Metformin Hcl 500 Mg Tablet PO Not Given On Hold: 06/11/25 09:00 [id number] MADI Morphine Sulfate 2 mg 06/11/25 09:16 06/12/25 08:31 Morphine Sulfate 2 Mg/Ml Syringe IVP 2 mg Q6H PRN Administration Severe Pain Non-Formulary Medication 100 mg 06/11/25 09:00 06/12/25 08:37 Bupropion Hcl [Wellbutrin Sr] PO 100 mg BID MADI Administration Non-Formulary Medication 37.5 mg 06/11/25 09:00 06/12/25 08:36 Phentermine PO 37.5 mg DAILY MADI Administration Non-Formulary Medication 200 mg 06/11/25 09:00 06/12/25 08:38 Topiramate PO 200 mg DAILY MADI Administration Non-Formulary Medication 10 mg 06/11/25 09:00 06/12/25 08:39 Vortioxetine [Trintellix] PO 10 mg DAILY MADI Administration Non-Formulary Medication 1 cap 06/11/25 09:00 06/12/25 08:38 L. Reuteri-L. Rhamnosus [Rephresh Pro-B] PO 1 cap DAILY MADI Administration Pantoprazole Sodium 40 mg 06/12/25 06:00 06/12/25 05:22 Pantoprazole Sodium 40 Mg Tablet.Dr PO 40 mg QDAC2 MADI Administration Rosuvastatin Calcium 5 mg 06/11/25 09:00 06/12/25 08:40 Rosuvastatin Calcium 10 Mg Tablet PO 5 mg DAILY AMDI Administration Sodium Chloride 1 syr 06/10/25 17:44 0.9% Sodium Chloride 10 Ml Disp.Syrin IVF PRN PRN To flush IV Triamcinolone Acetonide 1 applic 06/11/25 09:00 06/12/25 08:50 Triamcinolone Acetonide 80 Gm Cream TP 1 applic BID MADI Administration Plan Plan: 1. Cellulitis with abscess to R lower abdominal skin fold - Worsening, MRSA negative, vanc and ancef, no open area to culture 2. Intractable pain in setting of #1 - home norco dose restarted, toradol 15 mg Q6H prn for pain IV, and morphine 2 mg Q6H IV prn for pain for severe breakth rough pain 3. Hyponatremia - Resolved 4. Transaminitis - mild, likely due to infection, monitor for worsening 5. HLD - continue home medications 6. GERD - continue home medications 7. Metabolic acidosis - secondary to infection, continue NS@75mL/hr DVT Prophylaxis: Lovenox Dispo: Discussed need for transfer with patient. Requested [facility]. Spoke with Dr. Parikh - General surgery and Dr. Roche - Hospitalist, who both accepted the patient for their care. No beds available at this time and is on waitlist. Patient refusing to go anywhere else and is willing to wait for a bed. Medically stable at this time. Review Statement Review Statement: I have personally discussed and reviewed the patient's visit/currently labs/imaging/decision making with Dr. Jorge, my supervising attending. Greater that 50 minutes spent with patient, 50% of the time spent with this patient was devoted to counseling and coordination of care.
[2025-06-13 05:19] LABS: IMMATURE GRANULOCYTE # (AUTO) 0.0 (0.0-1.0); IMMATURE GRANULOCYTE % (AUTO) 0.4 % (0.0-5.0); RDW COEFFICIENT OF VARIATION 14.5 % (11.6-14.8)
[2025-06-13 05:33] LABS: CREATININE 1.01 mg/dL (0.60-1.30)
[2025-06-13 10:38] VITALS: BP 119/83; PULSE 79; RESP 14; TEMP 96.4
[2025-06-13] MEDS: UNASYN 3 GM in SODIUM CHLORIDE 100ML 100 ML IV SCH (11:51)
== END 2025-06-13 13:15 | disposition short-term general hospital (02) | DRG 603 ==
LOC: MEDSURG B 17:37 → ED 17:37 → MEDSURG B 22:59
PROVIDERS: ADMIT Hospitalist; ATTEND Nurse Practitioner Family